=== PATIENT | female | born 1940 | race Caucasian/White ===

== ENCOUNTER 2020-08-20 10:54 | Inpatient (IN) | payer MEDICARE, SELFPAY ==
[2020-08-20] VITALS (9 sets, daily range): BP systolic 98–146; BP diastolic 47–72; PULSE 79–123; RESP 18–37; TEMP 36.5–38.1; O2SAT 87–98; BMI 25.0
--- NOTE | ~2020-08-20 | XR_ITS ---
EXAMINATION: XR CHEST CLINICAL INFORMATION: Hypoxia. COVID positive. COMPARISON: None TECHNIQUE: Frontal view of the chest was obtained. FINDINGS: Status post-sternotomy. Monitoring leads overlie the chest. Surgical clips in the mediastinum and right chest wall. Normal heart size. Normal pulmonary vascularity. There is peribronchial thickening. There are multifocal patchy airspace opacities in bilateral lower lungs. There are some hazy opacifications also noted in bilateral upper lungs. Possible trace bilateral pleural effusions. No pulmonary edema or pneumothorax. Left shoulder arthritis, with dysmorphic appearance and sclerosis of the left humeral head. XR/XR chest 1V IMPRESSION: Multifocal airspace disease in bilateral lungs, more prominent in the lower lungs. Associated peribronchial thickening. Findings likely reflect infectious or inflammatory process. Question trace bilateral pleural effusions.
--- NOTE | ~2020-08-20 | CT_ITS ---
EXAMINATION: CT ANGIOGRAM OF THE CHEST WITH AND WITHOUT CONTRAST (CT PULMONARY ANGIOGRAM FOR PE) CLINICAL INFORMATION: Hypoxic, tachycardic, COVID+, D-dimer elevated, concern for PE. COMPARISON: None TECHNIQUE: Prior to contrast administration, noncontrast localization images were obtained. Subsequently, multidetector volumetric imaging was performed from the thoracic inlet to below the diaphragms following the administration of 80 mL Omnipaque 350 intravenous contrast. Sagittal, coronal, and MIP oblique sagittal reformatted images were obtained on the CT workstation, uploaded to PACS, and reviewed. This CT examination was performed using dose optimization techniques as appropriate, variously including the following: *Automated exposure control *Adjustment of mA and/or kV according to patient size (this includes techniques or standardized protocols for targeted exams where dose is matched to indication/reason for exam; i.e. extremities or head) *Use of iterative reconstruction technique Total exam dose-length product 250 mGy-cm FINDINGS: QUALITY OF STUDY/CONTRAST BOLUS: Satisfactory. PULMONARY ARTERIES: There is apparent subtle filling defect in the right middle lobe pulmonary artery, reference image [id number] series 7. Findings raise concern for a small embolus. No other definite filling defects are identified in the central or segmental vessels. THORACIC AORTA: Normal caliber aorta. No dissection. LUNG: Multifocal airspace and ground-glass opacities in the left hemithorax. The more prominent changes are seen along the anterior aspect right upper lobe, bilateral lower lobes. Findings likely reflect infectious/inflammatory process, given the clinical history of COVID positive disease. PLEURA: No pleural effusion or pneumothorax. MEDIASTINUM: Normal heart size. No pericardial effusion. No hilar or mediastinal lymphadenopathy. No evidence of septal bowing or right heart strain. Moderate hiatal hernia. CHEST WALL/AXILLA: No axillary or internal mammary lymphadenopathy. OSSEOUS STRUCTURES: Multilevel degeneration in the spine. There is anterior wedging of a mid thoracic vertebral body, suspected to be chronic. Status post-sternotomy. UPPER ABDOMEN: Probable sludge in the gallbladder. Small hypodense right renal lesion, probable cyst. Adrenal glands appear unremarkable. No reflux of contrast into the hepatic veins to suggest elevated right heart pressures. CT/CT angio chest PE protocol IMPRESSION: 1. Findings suspicious for a small pulmonary embolus in the right middle lobe pulmonary artery. 2. Multifocal airspace and ground-glass opacities diffusely throughout bilateral lungs, likely reflect infectious or inflammatory process. Recommend followup CT posttreatment for reassessment. 3. Anterior wedging of a mid thoracic vertebral body, suspected be chronic. Please clinically correlate. 4. Probable sludge in the gallbladder. Partially imaged right renal hypodense lesion, probable cyst. VTE: Positive.
--- NOTE | ~2020-08-20 | US_ITS ---
EXAMINATION: US VENOUS ULTRASOUND WITH DOPPLER LOWER EXTREMITY, BILATERAL CLINICAL INFORMATION: Edema. History of Covid. COMPARISON: None TECHNIQUE: Ultrasound of the deep veins is performed from the hip to the calf with compression sonography and color and pulse Doppler assessment. Spectral analysis with color-flow imaging is performed. FINDINGS: RIGHT: There is partial thrombosis in the right common femoral vein, limitation of vascular flow. More distally, the femoral vein, popliteal vein, visualized calf veins are patent. There is a 4.1 x 1.6 x 4 cm De Leon's cyst. LEFT: There is normal venous compression and respiratory variation and augmented flow. The visualized common femoral vein, superficial femoral vein, profunda femoral vein, popliteal vein, and the trifurcation region shows no evidence of deep venous thrombosis. The visualized calf veins demonstrate normal vascular flow. De Leon's cyst measuring 1.7 x 1.2 x 1.2 cm. US/US venous duplex LE BI IMPRESSION: 1. STUDY POSITIVE for deep vein thrombosis in the RIGHT lower extremity. Partial thrombosis of the right common femoral vein. 2. No evidence of deep vein thrombosis in the left lower extremity. This critical result was discussed with Lidia Chase at 1549 hours on 08/20/2020 and it was ascertained that the content and urgency of the report was understood at the time of direct communication.
--- NOTE | 2020-08-20 11:10 | ECG_ITS ---
Test Reason : SOB Blood Pressure : / mmHG Vent. Rate : 112 BPM Atrial Rate : 112 BPM P-R Int : 166 ms QRS Dur : 142 ms QT Int : 374 ms P-R-T Axes : 069 -65 041 degrees QTc Int : 510 ms Sinus tachycardia with Premature atrial complexes Left axis deviation Right bundle branch block Left ventricular hypertrophy with repolarization abnormality Inferior infarct , age undetermined Abnormal ECG No previous ECGs available Referred By: Lidia Chase Electronically Signed By:STEVEN ARAMBULA MD
--- NOTE | 2020-08-20 11:13 | ED.SOB ---
HPI - SOB/Dyspnea General Chief Complaint: Dyspnea Stated Complaint: INCREASED SOB,FEVER 100.8, +COVID MONDAY Time Seen by Provider: 08/20/20 11:10 Source: patient and EMS Mode of arrival: EMS Limitations: no limitations History of Present Illness HPI Narrative: 80 y/o female with history of asthma, CAD s/p CABG x3 14 years ago, hx breast cancer s/p resection and chemo who was recently diagnosed with COVID-19 two days ago presents to the ED via EMS with difficulty breathing and hypoxia noted by family. She has a pulse oximeter at home and it read 80- something. Family took her temperature and it was 100.8 and they noticed her breathing heavy. EMS was called who found patient with SpO2 87%, RR 28-32. She was placed on 6L NC and thought to the ED. In the ED patient reports not feeling well with decreased appetite and low energy. RR in the 30's but she denies SOB or difficulty breathing. She denies chest pain. She was on 2L NC with SpO2 93%. She states her asthma is moderate and she hasn't needed to use her inhalers lately. She denies N/V/D and abdominal pain but has not eaten much this week. Of note her PCP was contacted on Monday who started her on Prednisone taper, azithromycin, & doxycycline. MD elicited complaint: shortness of breath Pertinent past history: asthma Onset (ago): day(s) (3) Context: recent illness Timing: constant Severity: moderate Exacerbating factors: exertion and movement Relieving factors: oxygen and rest Known history of: asthma Associated symptoms: fever Treatment prior to arrival: oxygen Related Data Home oxygen amount: none Home Medications Medication Instructions Recorded Confirmed albuterol sulfate 2.5 mg INHALATION Q4H PRN 08/20/20 08/20/20 azithromycin 250 mg PO MOWEFR@0900 08/20/20 08/20/20 beclomethasone dipropionate [Qvar 1 puff PO BID 08/20/20 RediHaler] doxycycline hyclate 100 mg PO BID 08/20/20 08/20/20 fluticasone propion-salmeterol 1 puff PO BID 08/20/20 08/20/20 [Wixela Inhub] furosemide 20 - 40 mg PO DAILY PRN 08/20/20 08/20/20 levothyroxine 88 mcg PO DAILY 08/20/20 08/20/20 montelukast 10 mg PO BEDTIME 08/20/20 08/20/20 prednisone See Taper PO DAILY 08/20/20 08/20/20 simvastatin 20 mg PO BEDTIME 08/20/20 08/20/20 theophylline 300 mg PO DAILY 08/20/20 08/20/20 tiotropium bromide [Spiriva 2 puff INHALATION DAILY 08/20/20 08/20/20 Respimat] Allergies Allergy/AdvReac Type Severity Reaction Status Date / Time levofloxacin [From Levaquin] Allergy Unknown Unknown Verified 08/20/20 13:00 Review of Systems Review of Systems: Constitutional: + Fever, No Chills ENT/Mouth: No sore throat, No Rhinorrhea, No Swallowing Difficulty Cardiovascular: No Chest Pain, + SOB, No Orthopnea, No Edema Respiratory: No Cough, No Sputum, No Wheezing, No dyspnea Gastrointestinal: No Nausea, No Vomiting, No Diarrhea, No abdominal Pain Genitourinary: No Dysuria, No Urinary Frequency, No Hematuria Musculoskeletal: No joint pain, + Myalgias Skin: No Skin Lesions, No rash Neuro: + Weakness, No Numbness, No Dizziness, + Headache Psych: No Anxiety/Panic, No Depression Heme/Lymph: No Bruising, No Lymphadenopathy Endocrine: No Polyuria, No Polydipsia PMFSH Past Medical History Attestation statement: The following information was validated with the patient. Medical History Asthma History of breast cancer History of chemotherapy Surgical History (Updated 08/20/20 @ 11:11 by Shani Bautista RN) S/P triple vessel bypass Social History Social History Alcohol intake: never Smoking Status: Never smoker Advance Directives: No Advance Directives Information Provided: No Physical Exam Vital Signs: Vital Signs: Last Vital Signs Temp 97.7 F 08/20/20 13:29 Pulse 115 H 08/20/20 14:25 Resp 34 H 08/20/20 14:25 BP 104/50 L 08/20/20 14:25 Pulse Ox 97 08/20/20 14:25 Body Mass Index 25.0 Appearance: Alert. Oriented X3. Mild respiratory distress. Eyes: Pupils equal, round and reactive to light. Sucken eyes with mild temporal wasting ENT: Pharynx nwith dry mucus membranes Neck: Normal inspection. Neck supple. CVS: Tachycardic, regular rhythm. Pulses normal. Respiratory: Mild-moderate respiratory distress with RR 30, no accessory muscle use, diminished throughout with rhonchi in right middle lung field posteriorly. Abdomen: Soft and nontender. +BS x4 Skin: Skin warm and dry. Normal skin color. Normal skin turgor. No rashes. Extremities: RLE with 2+ pitting edema, 2+ DP pulses. Neuro: Oriented X 3. No motor deficit. No sensory deficit. SOLOMON Course Course Course Narrative: 80 y/o female with recently diagnosed COVID-19 presenting with acute hypoxic respiratory failure, low grade fever and tachycardia - IV decadron ordered as well as hour long nebulizer treatment. ABG and lab workup pending. No immediate need for rescue CPAP/BiPAP - will reassess need after nebulizer. CXR and LE ultrasound ordered. Suspect all due to viral etiology/COVID. Will require admission. Reevaluation(s) Reevaluation #1: Respiratory status improved after neb and IV steroids, RR now in the 20's, saturating well on 2L NC. ABG showing acute respiratory alkalosis consistent with her hyperventilation however she denies significant SOB. She appears comfortable. DDIMER is elevated, will proceed with CTA to r/o PE and further assess lung parenchyma. CXR is showing multifocal airspace disease with possible small effusions. BNP is normal. WBC 19.8 noted, likely due to the prednisone & viral etiology. Awaiting procalcitonin. Will hold off on antibiotics at this time. Spoke with patient's daughter Neelima, provided medical update and informed her of planned admission. Reevaluation #2: CTA + for small RML PE. LE dopplers + RLE DVT. Heparin gtt ordered. ODILON Neely PA-C who will admit the patient for further care. MDM - SOB/Dyspnea Medical Records Attestation: I reviewed the patient's medical records. Lab Data Attestation: I reviewed the patient's lab results. Result diagrams: 08/20/20 11:39 08/20/20 12:24 Labs: Lab Results 08/20/20 08/20/20 08/20/20 Range/Units 11:25 11:35 11:39 WBC 19.3 H (4.8-10.8) X10*3/uL RBC 5.09 (4.20-5.50) X10*6/uL Hgb 12.5 (12.0-16.0) g/dl Hct 40.5 (37-47) % MCV 79.6 L (80-98) fL MCH 24.6 L (27.0-33.0) pg MCHC 30.9 L (31.0-35.0) g/dl RDW 16.2 H (11.0-16.0) % Plt Count 417 H (160-400) X10*3/uL MPV 8.9 L (9.4-12.3) fL Immature Gran % (Auto) 0.8 H (0.0-0.4) % Neut % (Auto) 93.1 H (45-73) % Lymph % (Auto) 2.4 L (20-40) % [place] % (Auto) 3.6 (2-11) % Eos % (Auto) 0.0 (0-4) % Baso % (Auto) 0.1 (0-2) % Lymph # (Auto) 0.5 L (1.2-4.9) X10*3/uL [place] # (Auto) 0.7 (0.1-1.2) X10*3/uL Eos # (Auto) 0.0 (0.0-0.4) X10*3/uL Baso # (Auto) 0.0 (0.0-0.2) X10*3/uL Abs Immat Gran (auto) 0.15 H (0.00-0.03) X10*3/uL Absolute Neuts (auto) 17.9 H (2.0-8.3) X10*3/uL Absolute Nucleated RBC 0.000 (0.0-0.012) X10*3/uL Nucleated RBC % (auto) 0.0 (0.0-0.2) /100WBC Smear Tech's Comments VERIFIED PT (10.8-13.0) SEC INR (0.9-1.1) APTT (24.1-38.0) SEC D-Dimer NG/ML ABG pH 7.52 H (7.35-7.45) ABG pCO2 29 L (32-45) mmHg ABG pO2 72 L (83-108) mmHg ABG HCO3 24 (22-26) mmol/L ABG O2 Saturation 92.0 % ABG Base Excess 2.7 Oxygen Given 2 L Sodium (135-145) mmol/L Potassium (3.3-5.1) mmol/L Chloride (96-108) mmol/L Carbon Dioxide (22-29) mmol/L Anion Gap (12-20) BUN (9-16) mg/dL Creatinine (0.5-1.4) mg/dL Estim Creat Clear Calc Estimated GFR Random Glucose (60-115) mg/dL Lactic Acid (0.5-2.0) mmol/L Calcium (8.4-10.2) mg/dL Magnesium (1.6-2.6) mg/dL Total Bilirubin (0.0-1.0) mg/dL Direct Bilirubin (0.0-0.5) mg/dL AST (5-31) U/L ALT (0-31) U/L Alkaline Phosphatase (39-117) U/L Troponin I High Sens (<3.5-17.0) ng/L C-Reactive Protein (< or = 0.50) mg/dL B-Natriuretic Peptide (<100) pg/mL Total Protein (6.5-8.0) g/dL Albumin (3.5-5.0) g/dL Procalcitonin ng/mL Urine Color Urine Appearance Urine pH (5.0-8.0) Ur Specific [place] (1.005-1.025) Urine Protein (NEG-TRACE) MG/DL Urine Glucose (UA) (NEG) MG/DL Urine Ketones (NEG) MG/DL Urine Blood (NEG) Urine Nitrite (NEG) Ur Leukocyte Esterase (NEG) Urine RBC (0) /HPF Urine WBC (0-4) /HPF Ur Squamous Epith Cells /LPF Urine Bacteria /LPF COVID-19 ([facility]) Positive A (Negative) COVID-19 Clin Com See Note 08/20/20 08/20/20 08/20/20 Range/Units 11:39 11:39 11:39 WBC (4.8-10.8) X10*3/uL RBC (4.20-5.50) X10*6/uL Hgb (12.0-16.0) g/dl Hct (37-47) % MCV (80-98) fL MCH (27.0-33.0) pg MCHC (31.0-35.0) g/dl RDW (11.0-16.0) % Plt Count (160-400) X10*3/uL MPV (9.4-12.3) fL Immature Gran % (Auto) (0.0-0.4) % Neut % (Auto) (45-73) % Lymph % (Auto) (20-40) % [place] % (Auto) (2-11) % Eos % (Auto) (0-4) % Baso % (Auto) (0-2) % Lymph # (Auto) (1.2-4.9) X10*3/uL [place] # (Auto) (0.1-1.2) X10*3/uL Eos # (Auto) (0.0-0.4) X10*3/uL Baso # (Auto) (0.0-0.2) X10*3/uL Abs Immat Gran (auto) (0.00-0.03) X10*3/uL Absolute Neuts (auto) (2.0-8.3) X10*3/uL Absolute Nucleated RBC (0.0-0.012) X10*3/uL Nucleated RBC % (auto) (0.0-0.2) /100WBC Smear Tech's Comments PT 15.2 H (10.8-13.0) SEC INR 1.3 H (0.9-1.1) APTT 29.5 (24.1-38.0) SEC D-Dimer 379 NG/ML ABG pH (7.35-7.45) ABG pCO2 (32-45) mmHg ABG pO2 (83-108) mmHg ABG HCO3 (22-26) mmol/L ABG O2 Saturation % ABG Base Excess Oxygen Given Sodium (135-145) mmol/L Potassium (3.3-5.1) mmol/L Chloride (96-108) mmol/L Carbon Dioxide (22-29) mmol/L Anion Gap (12-20) BUN (9-16) mg/dL Creatinine (0.5-1.4) mg/dL Estim Creat Clear Calc Estimated GFR Random Glucose (60-115) mg/dL Lactic Acid 1.8 (0.5-2.0) mmol/L Calcium (8.4-10.2) mg/dL Magnesium (1.6-2.6) mg/dL Total Bilirubin (0.0-1.0) mg/dL Direct Bilirubin (0.0-0.5) mg/dL AST (5-31) U/L ALT (0-31) U/L Alkaline Phosphatase (39-117) U/L Troponin I High Sens 25.3 H (<3.5-17.0) ng/L C-Reactive Protein (< or = 0.50) mg/dL B-Natriuretic Peptide 30 (<100) pg/mL Total Protein (6.5-8.0) g/dL Albumin (3.5-5.0) g/dL Procalcitonin ng/mL Urine Color Urine Appearance Urine pH (5.0-8.0) Ur Specific [place] (1.005-1.025) Urine Protein (NEG-TRACE) MG/DL Urine Glucose (UA) (NEG) MG/DL Urine Ketones (NEG) MG/DL Urine Blood (NEG) Urine Nitrite (NEG) Ur Leukocyte Esterase (NEG) Urine RBC (0) /HPF Urine WBC (0-4) /HPF Ur Squamous Epith Cells /LPF Urine Bacteria /LPF COVID-19 ([facility]) (Negative) COVID-19 Clin Com 08/20/20 08/20/20 08/20/20 Range/Units 12:24 12:24 13:32 WBC (4.8-10.8) X10*3/uL RBC (4.20-5.50) X10*6/uL Hgb (12.0-16.0) g/dl Hct (37-47) % MCV (80-98) fL MCH (27.0-33.0) pg MCHC (31.0-35.0) g/dl RDW (11.0-16.0) % Plt Count (160-400) X10*3/uL MPV (9.4-12.3) fL Immature Gran % (Auto) (0.0-0.4) % Neut % (Auto) (45-73) % Lymph % (Auto) (20-40) % [place] % (Auto) (2-11) % Eos % (Auto) (0-4) % Baso % (Auto) (0-2) % Lymph # (Auto) (1.2-4.9) X10*3/uL [place] # (Auto) (0.1-1.2) X10*3/uL Eos # (Auto) (0.0-0.4) X10*3/uL Baso # (Auto) (0.0-0.2) X10*3/uL Abs Immat Gran (auto) (0.00-0.03) X10*3/uL Absolute Neuts (auto) (2.0-8.3) X10*3/uL Absolute Nucleated RBC (0.0-0.012) X10*3/uL Nucleated RBC % (auto) (0.0-0.2) /100WBC Smear Tech's Comments PT (10.8-13.0) SEC INR (0.9-1.1) APTT (24.1-38.0) SEC D-Dimer NG/ML ABG pH (7.35-7.45) ABG pCO2 (32-45) mmHg ABG pO2 (83-108) mmHg ABG HCO3 (22-26) mmol/L ABG O2 Saturation % ABG Base Excess Oxygen Given Sodium 138 (135-145) mmol/L Potassium 2.9 L (3.3-5.1) mmol/L Chloride 98 (96-108) mmol/L Carbon Dioxide 24 (22-29) mmol/L Anion Gap 19 (12-20) BUN 22 H (9-16) mg/dL Creatinine 0.82 (0.5-1.4) mg/dL Estim Creat Clear Calc 45.1 Estimated GFR > 60 Random Glucose 145 H (60-115) mg/dL Lactic Acid (0.5-2.0) mmol/L Calcium 8.7 (8.4-10.2) mg/dL Magnesium 1.5 L (1.6-2.6) mg/dL Total Bilirubin 0.7 (0.0-1.0) mg/dL Direct Bilirubin 0.3 (0.0-0.5) mg/dL AST 32 H (5-31) U/L ALT 19 (0-31) U/L Alkaline Phosphatase 117 (39-117) U/L Troponin I High Sens (<3.5-17.0) ng/L C-Reactive Protein 27.61 H (< or = 0.50) mg/dL B-Natriuretic Peptide (<100) pg/mL Total Protein 6.4 L (6.5-8.0) g/dL Albumin 3.5 (3.5-5.0) g/dL Procalcitonin 1.33 ng/mL Urine Color YELLOW Urine Appearance CLEAR Urine pH 6.0 (5.0-8.0) Ur Specific [place] 1.015 (1.005-1.025) Urine Protein 1+ H (NEG-TRACE) MG/DL Urine Glucose (UA) NEG (NEG) MG/DL Urine Ketones NEG (NEG) MG/DL Urine Blood TRACE (NEG) Urine Nitrite NEG (NEG) Ur Leukocyte Esterase NEG (NEG) Urine RBC 0-2 (0) /HPF Urine WBC 0-2 (0-4) /HPF Ur Squamous Epith Cells 1+ /LPF Urine Bacteria TRACE /LPF COVID-19 ([facility]) (Negative) COVID-19 Clin Com ECG Data Attestation: I personally reviewed and interpreted this ECG as follows: ECG interpretation date: 08/20/20 Prior ECG tracings: not available for review Interpretation: sinus tachycardia, HR 112 bpm, RBBB, normal MI interval, prolonged Qtc 510 ms, artifact present Critical Care Time Critical Care Time Critical Care Time: Yes Total Critical Care Time: 45 Attestation: I attest to critical care time spent caring for this patient with acute hypoxic respiratory failure requiring supplemental oxygen with close and frequent monitoring of respiratory status. Discharge Plan Discharge Clinical Impression: Acute respiratory failure due to COVID-19 Pulmonary embolism Qualifiers: Pulmonary embolism type: single subsegmental (without acute cor pulmonale) Qualified Code(s): I26.93 - Single subsegmental pulmonary embolism without acute cor pulmonale DVT (deep venous thrombosis) Qualifiers: DVT location: lower extremity Affected thrombotic vein of extremity: femoral Chronicity: acute Laterality: right Qualified Code(s): I82.411 - Acute embolism and thrombosis of right femoral vein Patient Disposition: Admitted As Inpatient
[2020-08-20] MEDS: Albuterol Sulfate (0.083%) 2.5 MG/3 ML VIAL.NEB 10 MG INHALE (11:44)
[2020-08-20 11:48] LABS: Pt Ventilation O2% 2 L
[2020-08-20 11:50] LABS: Base Excess ABG 2.7; HCO3 ABG 24 mmol/L (22-26)
[2020-08-20 11:51] LABS: Basophils Percent Auto 0.1 % (0-2); Hematocrit 40.5 % (37-47); Hemoglobin 12.5 g/dl (12.0-16.0); Imm Gran Abs Auto 0.15 X10*3/uL (0.00-0.03); Imm Gran Pct Auto 0.8 % (0.0-0.4); Lymphocytes Absolute Auto 0.5 X10*3/uL (1.2-4.9); Lymphocytes Percent Auto 2.4 % (20-40); MANUAL DIFF FLAG SCAN; Mean Corpuscular HGB Conc 30.9 g/dl (31.0-35.0); Mean Corpuscular Hemoglobin 24.6 pg (27.0-33.0); Mean Corpuscular Volume 79.6 fL (80-98); Mean Platelet Volume 8.9 fL (9.4-12.3); Monocytes Absolute Auto 0.7 X10*3/uL (0.1-1.2); Monocytes Percent Auto 3.6 % (2-11); Neutrophils Absolute Auto 17.9 X10*3/uL (2.0-8.3); Neutrophils Percent Auto 93.1 % (45-73); Platelet Count 417 X10*3/uL (160-400); Red Blood Count 5.09 X10*6/uL (4.20-5.50); Red Cell Distribution Width 16.2 % (11.0-16.0); SCAN SMEAR FLAG 1; White Blood Count 19.3 X10*3/uL (4.8-10.8)
[2020-08-20 11:51] LABS: ABG PCO2 29 mmHg (32-45); PO2 ABG 72 mmHg (83-108); pH ABG 7.52 (7.35-7.45)
[2020-08-20] MEDS: dexAMETHasone sod phosphate 4 MG/ML VIAL 6 MG IVPUSH (11:51)
[2020-08-20] MEDS: 0.9 % Sodium Chloride 1,000 ML 999 ML IVCONT (11:51)
[2020-08-20] MEDS: Acetaminophen 325 MG TABLET 975 MG PO (11:54)
[2020-08-20 11:56] LABS: INTERNATIONAL NORM RATIO 1.3 (0.9-1.1); Prothrombin Time 15.2 SEC (10.8-13.0)
[2020-08-20 11:59] LABS: D Dimer 379 NG/ML; Partial Thromboplastin Time 29.5 SEC (24.1-38.0)
[2020-08-20 12:00] LABS: COVID-19 Test Positive (Negative); IDNOW Serial# 9DD0AD1C
[2020-08-20 12:14] LABS: Lactic Acid 1.8 mmol/L (0.5-2.0)
[2020-08-20 12:24] LABS: SLIDE REVIEW VERIFIED
[2020-08-20 12:26] LABS: B Type Natriuretic Peptide 30 pg/mL (<100); Troponin-I High Sensitivity 25.3 ng/L (<3.5-17.0)
[2020-08-20 13:05] LABS: Alanine Aminotransferase 19 U/L (0-31); Albumin Level 3.5 g/dL (3.5-5.0); Alkaline Phosphatase 117 U/L (39-117); Aspartate Amino Transferase 32 U/L (5-31); Bilirubin Direct 0.3 mg/dL (0.0-0.5); Bilirubin Total 0.7 mg/dL (0.0-1.0); Blood Urea Nitrogen 22 mg/dL (9-16); C Reactive Protein 27.61 mg/dL (< or = 0.50); Calcium 8.7 mg/dL (8.4-10.2); Creatinine Clr Calc Pharmacy 45.1; Estimated Glomerular Filt Rate > 60; Glucose Random 145 mg/dL (60-115); Magnesium 1.5 mg/dL (1.6-2.6); Total Protein 6.4 g/dL (6.5-8.0)
[2020-08-20 13:16] LABS: Anion Gap 19 (12-20); Carbon Dioxide 24 mmol/L (22-29); Chloride 98 mmol/L (96-108); Potassium 2.9 mmol/L (3.3-5.1); Sodium 138 mmol/L (135-145)
[2020-08-20 13:40] LABS: Glucose Urine UA NEG (NEG); Leukocyte Esterase Urine NEG (NEG); Nitrite Urine NEG (NEG); Specific Gravity - Urine 1.015 (1.005-1.025); Urine Blood TRACE (NEG); Urine Ketones NEG (NEG); Urine Protein 1+ MG/DL (NEG-TRACE)
[2020-08-20 13:42] LABS: Appearance Urine CLEAR; Color Urine YELLOW
[2020-08-20 13:50] LABS: Bacteria Urine TRACE /LPF; RBC Urine 0-2 /HPF (0); Squamous Epithelial Cell Urine 1+ /LPF; WBC Urine 0-2 /HPF (0-4)
[2020-08-20] MEDS: iohexoL 350 MG/ML 100 ML INFUS..BTL 85 ML IV (14:14)
[2020-08-20] MEDS: Magnesium Sulfate/H2O 2 GM/50 ML PIGGYBACK IV (14:28)
[2020-08-20] MEDS: Potassium Chloride ER 20 MEQ TAB.ER.PRT 60 MEQ PO (14:32)
[2020-08-20] MEDS: Heparin Sodium,Porcine 5,000 UNIT/ML VIAL 2300 UNIT IVPUSH (15:32)
[2020-08-20] MEDS: Heparin Sodium,Porcine/1/2NS 25,000 UNIT/250 ML IV.SOLN 8.12 UNIT IVCONT (15:42)
[2020-08-20 15:46] LABS: Procalcitonin 1.33 ng/mL
[2020-08-20 15:58] LABS: Troponin-I High Sensitivity 38.2 ng/L (<3.5-17.0)
--- NOTE | 2020-08-20 16:03 | P.HPHOSP_ITS ---
History of Present Illness Date of Service: 08/20/20 <DONNELL Cuevas Last Filed: 08/20/20 16:39> Chief Complaint: shortness of breath <DONNELL Cuevas Last Filed: 08/20/20 16:39> This is a 80 year old female who presents to the ED with shortness of breath. She has had a dry cough for the past 1 week and has been generally feeling ?lousy.? She was diagnosed with coronavirus on Monday. She lives with her daughter and recently her son-in-law tested positive for COVID19. She and the remainder of her family all tested positive as well. Today her oxygen saturation at home was low and she was reportedly short of breath she was brought to the hospital for evaluation. She was noted to have fever of 100.5, she was tachycardic and tachypneic on arrival. Her oxygen saturation was in the 80s by EMS. CTA showed multifocal airspace and ground-glass opacities diffusely throughout bilateral lungs as well as small pulmonary embolus in the right middle lobe pulmonary artery and right lower extremity DVT. Her CRP was elevated at 27.61. She was given a dose of IV dexamethasone and started on heparin drip and the decision was made to admit her for further management. <DONNELL Cuevas - Last Filed: 08/20/20 16:39> Review of Systems Review of Systems: Yes all other systems are reviewed and are negative <DONNELL Cuevas Last Filed: 08/20/20 16:39> Constitutional: Constitutional: Denies chills and Reports fever(s) <DONNELL Cuevas Last Filed: 08/20/20 16:39> Cardiovascular: Cardiovascular: Denies chest pain and Denies dyspnea <DONNELL Cuevas Last Filed: 08/20/20 16:39> Respiratory: Respiratory: Reports cough and Denies dyspnea <DONNELL Cuevas Last Filed: 08/20/20 16:39> Gastrointestinal: Gastrointestinal: Denies abdominal pain <DONNELL Cuevas Last Filed: 08/20/20 16:39> [facility] Medical History: Medical History (Updated 08/20/20 @ 16:10 by DONNELL Cuevas) Asthma CAD (coronary artery disease) History of breast cancer History of chemotherapy HLD (hyperlipidemia) Hypothyroid <DONNELL Cuevas - Last Filed: 08/20/20 16:39> Functional capacity: uses cane/walker <DONNELL Cuevas - Last Filed: 08/20/20 16:39> Family History: Family History Other No cardiac disease <DONNELL Cuevas - Last Filed: 08/20/20 16:39> Family history: reviewed and not pertinent <DONNELL Cuevas - Last Filed: 08/20/20 16:39> Surgical History: Surgical History S/P triple vessel bypass <DONNELL Cuevas - Last Filed: 08/20/20 16:39> Social History: Social History (Updated 08/20/20 @ 16:11 by DONNELL Cuevas) Household Members: Family Housing: House Do you presently have visiting nurse or other home services: No Alcohol intake: never Smoking Status: Never smoker Smoked in Last 30 Days: No Use of substances other than those prescribed or required for medical reasons: No Have you been hit, kicked, punched, or otherwise hurt by someone within the past year? If so, by whom?: No Do you feel safe in your current relationship?: No Current Relationship Is there a partner from a previous relationship who is making you feel unsafe now?: No Are you made to feel afraid or neglected: No Advance Directives: No Advance Directives Information Provided: No Do you have thoughts of harming others: None Recently lost weight without trying: No service: No Current occupational status: retired <DONNELL Cuevas - Last Filed: 08/20/20 16:39> Meds Allergies/Adverse reactions: Allergies Allergy/AdvReac Type Severity Reaction Status Date / Time levofloxacin [From Levaquin] Allergy Unknown Unknown Verified 08/20/20 13:00 <DONNELL Cuevas - Last Filed: 08/20/20 16:39> Active Medications: Current Medications Generic Name Dose Route Start Last Admin Trade Name Freq PRN Reason Stop Dose Admin Heparin Sodium (Porcine) 2,300 unit 08/20/20 14:44 08/20/20 15:32 Heparin Sodium,Porcine 5,000 Unit/Ml Vial 40 unit/kg (2300 unit) 2,300 unit IVPUSH Administration BOLUS PRN 40 unit/kg - Heparin Protocol Heparin Sodium/Sodium Chloride 25,000 unit in 250 mls @ 0 mls/hr 08/20/20 14:45 08/20/20 15:42 IVCONT 14 units/kg/hr .Q0M GERALD 8.12 mls/hr Administration Protocol Per Protocol Pharmacy Consult 1 each 08/20/20 11:10 Consult Rx Perform Med Rec MISCELLANE ONCE PRN Consult order <DONNELL Cuevas - Last Filed: 08/20/20 16:39> Home medications: Home Medications Medication Instructions Recorded Confirmed Last Taken Type albuterol sulfate 2.5 mg INHALATION Q4H PRN 08/20/20 08/20/20 08/20/20 History azithromycin 250 mg PO MOWEFR@0900 08/20/20 08/20/20 08/19/20 History beclomethasone dipropionate [Qvar 1 puff PO BID 08/20/20 Unknown History RediHaler] doxycycline hyclate 100 mg PO BID 08/20/20 08/20/20 08/19/20 History fluticasone propion-salmeterol 1 puff PO BID 08/20/20 08/20/20 Unknown History [Wixela Inhub] furosemide 20 - 40 mg PO DAILY PRN 08/20/20 08/20/20 Unknown History levothyroxine 88 mcg PO DAILY 08/20/20 08/20/20 08/20/20 History montelukast 10 mg PO BEDTIME 08/20/20 08/20/20 08/19/20 History prednisone See Taper PO DAILY 08/20/20 08/20/20 08/20/20 History simvastatin 20 mg PO BEDTIME 08/20/20 08/20/20 08/19/20 History theophylline 300 mg PO DAILY 08/20/20 08/20/20 08/19/20 History tiotropium bromide [Spiriva 2 puff INHALATION DAILY 08/20/20 08/20/20 Unknown History Respimat] <DONNELL Cuevas - Last Filed: 08/20/20 16:39> Physical Exam Vital Signs and Narrative: Vital Signs: Last Vital Signs Temp 97.7 F 08/20/20 13:29 Pulse 115 H 08/20/20 14:25 Resp 34 H 08/20/20 14:25 BP 104/50 L 08/20/20 14:25 Pulse Ox 97 08/20/20 14:25 Body Mass Index 25.0 <DONNELL Cuevas - Last Filed: 08/20/20 16:39> Const: Other: hard of hearing, able to hear better on right side <DONNELL Cuevas - Last Filed: 08/20/20 16:39> General: cooperative, alert and awake <DONNELL Cuevas - Last Filed: 08/20/20 16:39> Nutritional Appearance: well nourished <DONNELL Cuevas - Last Filed: 08/20/20 16:39> Orientation/consciousness: patient oriented x3 <DONNELL Cuevas - Last Filed: 08/20/20 16:39> HENMT: Head: Yes normocephalic and Yes atraumatic <DONNELL Cuevas - Last Filed: 08/20/20 16:39> Eyes: Sclerae: sclerae normal <DONNELL Cuevas - Last Filed: 08/20/20 16:39> Chest: Chest palpation & inspection: normal inspection of the chest <DONNELL Cuevas - Last Filed: 08/20/20 16:39> Resp: Effort & Inspection: tachypneic <DONNELL Cuevas - Last Filed: 08/20/20 16:39> Cardio: Rate: regular rate <DONNELL Cuevas - Last Filed: 08/20/20 16:39> Rhythm: regular rhythm <DONNELL Cuevas - Last Filed: 08/20/20 16:39> GI: Palpation (GI): Soft to palpation and nontender <DONNELL Cuevas - Last Filed: 08/20/20 16:39> Skin: General skin exam: no rashes or lesions noted <DONNELL Cuevas - Last Filed: 08/20/20 16:39> Neuro: General: patient oriented x3 <DONNELL Cuevas - Last Filed: 08/20/20 16:39> Cranial nerves: Yes CN's II-XII intact bilaterally and Yes Bilaterally intact EOM present <DONNELL Cuevas - Last Filed: 08/20/20 16:39> Extrem: Other: RLE swelling <DONNELL Cuevas - Last Filed: 08/20/20 16:39> Results Labs CBC and Chem 7: : 08/21/20 07:53 08/21/20 07:53 <DONNELL Cuevas - Last Filed: 08/20/20 16:39> Labs: Laboratory Results - last 24 hr 08/20/20 08/20/20 08/20/20 11:25 11:35 11:39 MCV 79.6 L MCH 24.6 L MCHC 30.9 L RDW 16.2 H Plt Count 417 H MPV 8.9 L Immature Gran % (Auto) 0.8 H Neut % (Auto) 93.1 H Lymph % (Auto) 2.4 L [place] % (Auto) 3.6 Eos % (Auto) 0.0 Baso % (Auto) 0.1 Lymph # (Auto) 0.5 L [place] # (Auto) 0.7 Eos # (Auto) 0.0 Baso # (Auto) 0.0 Abs Immat Gran (auto) 0.15 H Absolute Neuts (auto) 17.9 H Absolute Nucleated RBC 0.000 Nucleated RBC % (auto) 0.0 Smear Tech's Comments VERIFIED PT INR APTT D-Dimer ABG pH 7.52 H ABG pCO2 29 L ABG pO2 72 L ABG HCO3 24 ABG O2 Saturation 92.0 ABG Base Excess 2.7 Oxygen Given 2 L Anion Gap Estim Creat Clear Calc Estimated GFR Random Glucose Lactic Acid Calcium Magnesium Total Bilirubin Direct Bilirubin AST ALT Alkaline Phosphatase Troponin I High Sens C-Reactive Protein B-Natriuretic Peptide Total Protein Albumin Procalcitonin Urine Color Urine Appearance Urine pH Ur Specific [place] Urine Protein Urine Glucose (UA) Urine Ketones Urine Blood Urine Nitrite Ur Leukocyte Esterase Urine RBC Urine WBC Ur Squamous Epith Cells Urine Bacteria COVID-19 (MIRNA) Positive A COVID-19 Clin Com See Note 08/20/20 08/20/20 08/20/20 11:39 11:39 11:39 MCV MCH MCHC RDW Plt Count MPV Immature Gran % (Auto) Neut % (Auto) Lymph % (Auto) [place] % (Auto) Eos % (Auto) Baso % (Auto) Lymph # (Auto) [place] # (Auto) Eos # (Auto) Baso # (Auto) Abs Immat Gran (auto) Absolute Neuts (auto) Absolute Nucleated RBC Nucleated RBC % (auto) Smear Tech's Comments PT 15.2 H INR 1.3 H APTT 29.5 D-Dimer 379 ABG pH ABG pCO2 ABG pO2 ABG HCO3 ABG O2 Saturation ABG Base Excess Oxygen Given Anion Gap Estim Creat Clear Calc Estimated GFR Random Glucose Lactic Acid 1.8 Calcium Magnesium Total Bilirubin Direct Bilirubin AST ALT Alkaline Phosphatase Troponin I High Sens 25.3 H C-Reactive Protein B-Natriuretic Peptide 30 Total Protein Albumin Procalcitonin Urine Color Urine Appearance Urine pH Ur Specific [place] Urine Protein Urine Glucose (UA) Urine Ketones Urine Blood Urine Nitrite Ur Leukocyte Esterase Urine RBC Urine WBC Ur Squamous Epith Cells Urine Bacteria COVID-19 (MIRNA) COVID-19 Clin Com 08/20/20 08/20/20 08/20/20 12:24 12:24 13:32 MCV MCH MCHC RDW Plt Count MPV Immature Gran % (Auto) Neut % (Auto) Lymph % (Auto) [place] % (Auto) Eos % (Auto) Baso % (Auto) Lymph # (Auto) [place] # (Auto) Eos # (Auto) Baso # (Auto) Abs Immat Gran (auto) Absolute Neuts (auto) Absolute Nucleated RBC Nucleated RBC % (auto) Smear Tech's Comments PT INR APTT D-Dimer ABG pH ABG pCO2 ABG pO2 ABG HCO3 ABG O2 Saturation ABG Base Excess Oxygen Given Anion Gap 19 Estim Creat Clear Calc 45.1 Estimated GFR > 60 Random Glucose 145 H Lactic Acid Calcium 8.7 Magnesium 1.5 L Total Bilirubin 0.7 Direct Bilirubin 0.3 AST 32 H ALT 19 Alkaline Phosphatase 117 Troponin I High Sens C-Reactive Protein 27.61 H B-Natriuretic Peptide Total Protein 6.4 L Albumin 3.5 Procalcitonin 1.33 Urine Color YELLOW Urine Appearance CLEAR Urine pH 6.0 Ur Specific [place] 1.015 Urine Protein 1+ H Urine Glucose (UA) NEG Urine Ketones NEG Urine Blood TRACE Urine Nitrite NEG Ur Leukocyte Esterase NEG Urine RBC 0-2 Urine WBC 0-2 Ur Squamous Epith Cells 1+ Urine Bacteria TRACE COVID-19 (MIRNA) COVID-19 Clin Com 08/20/20 15:09 MCV MCH MCHC RDW Plt Count MPV Immature Gran % (Auto) Neut % (Auto) Lymph % (Auto) [place] % (Auto) Eos % (Auto) Baso % (Auto) Lymph # (Auto) [place] # (Auto) Eos # (Auto) Baso # (Auto) Abs Immat Gran (auto) Absolute Neuts (auto) Absolute Nucleated RBC Nucleated RBC % (auto) Smear Tech's Comments PT INR APTT D-Dimer ABG pH ABG pCO2 ABG pO2 ABG HCO3 ABG O2 Saturation ABG Base Excess Oxygen Given Anion Gap Estim Creat Clear Calc Estimated GFR Random Glucose Lactic Acid Calcium Magnesium Total Bilirubin Direct Bilirubin AST ALT Alkaline Phosphatase Troponin I High Sens 38.2 H D C-Reactive Protein B-Natriuretic Peptide Total Protein Albumin Procalcitonin Urine Color Urine Appearance Urine pH Ur Specific [place] Urine Protein Urine Glucose (UA) Urine Ketones Urine Blood Urine Nitrite Ur Leukocyte Esterase Urine RBC Urine WBC Ur Squamous Epith Cells Urine Bacteria COVID-19 (MIRNA) COVID-19 Clin Com <DONNELL Cuevas - Last Filed: 08/20/20 16:39> Imaging Radiologist's Impressions: Impressions Chest X-Ray 08/20/20 11:10 IMPRESSION: Multifocal airspace disease in bilateral lungs, more prominent in the lower lungs. Associated peribronchial thickening. Findings likely reflect infectious or inflammatory process. Question trace bilateral pleural effusions. Chest CTA 08/20/20 12:28 IMPRESSION: 1. Findings suspicious for a small pulmonary embolus in the right middle lobe pulmonary artery. 2. Multifocal airspace and ground-glass opacities diffusely throughout bilateral lungs, likely reflect infectious or inflammatory process. Recommend followup CT posttreatment for reassessment. 3. Anterior wedging of a mid thoracic vertebral body, suspected be chronic. Please clinically correlate. 4. Probable sludge in the gallbladder. Partially imaged right renal hypodense lesion, probable cyst. VTE: Positive. <DONNELL Cuevas - Last Filed: 08/20/20 16:39> Assessment and Plan (1) Acute respiratory failure due to COVID-19: Status: Acute <DONNELL Cuevas - Last Filed: 08/20/20 16:39> (2) Pulmonary embolism: Qualifiers: Pulmonary embolism type: single subsegmental (without acute cor pulmonale) Qualified Code(s): I26.93 - Single subsegmental pulmonary embolism without acute cor pulmonale <DONNELL Cuevas - Last Filed: 08/20/20 16:39> Status: Acute <DONNELL Cuevas - Last Filed: 08/20/20 16:39> (3) DVT (deep venous thrombosis): Qualifiers: Affected thrombotic vein of extremity: femoral Chronicity: acute DVT location: lower extremity Laterality: right Qualified Code(s): I82.411 - Acute embolism and thrombosis of right femoral vein <DONNELL Mcnally - Last Filed: 08/20/20 16:39> Status: Acute <DONNELL Cuevas - Last Filed: 08/20/20 16:39> This is a 80-year-old male with a history of hyperlipidemia CAD, hypothyroid, asthma, recent diagnosis of COVID-19 who presents to the emergency department with shortness of breath found to be hypoxic and with PE Acute respiratory failure with hypoxia multifactorial due to underlying lung dz, covid, PE Viral Sepsis secondary to covid 19 sepsis focused exam completed. LA wnl. Pneumonia secondary to COVID-19. -given elevated procalcitonin will cover with antibiotics. 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 Palacios <DONNELL Cuevas - Last Filed: 08/20/20 16:39>
--- NOTE | 2020-08-20 16:16 | PM.EVENT ---
Event Note Date of Service: 08/20/20 Event Note: Patient seen examined with APC 80-year-old female patient with past medical history significant for asthma, coronary artery disease, breast cancer status post chemo presented to [place] with symptoms of shortness of breath, dry cough and hypoxia noted today,patient was diagnose to have coronavirus 08/18 workup in the ER revealed small right middle lobe pulmonary embolus, she noted to have hypo kalemia, hypo magnesemia elevated CRP, procalcitonin, and leukocytosis patient started on IV heparin and IV dexamethasone in the emergency room On examination patient awake alert in no distress Lungs facial E had [id number] respiratory distress currently is stable looking, and diminished breath sound with occasional rhonchi bilateral lower lobes Extremities right lower extremity > left Assessment and plan 80-year-old female patient recently diagnosed with COVID-19 presented to [place] with acute hypoxic respiratory failure, sepsis related to COVID-19 with electrolyte abnormalities, diagnosed to have right lower extremity DVT and right middle lobe PE Continue IV heparin started in the emergency room Patient will be continued on IV dexamethasone Will add IV Zosyn, cough medication, frequent position change Will obtain ID consultation for use of remdesivir Replace potassium and magnesium and follow levels closely Elevated troponin likely due to COVID Agree with treatment plan as per APC
--- NOTE | 2020-08-20 17:11 | MHC.CM.PN ---
CM met with pt. IMM 08/20/20. Reviewed and signed per protocol. Very pleasant, A&Ox3, woman. Sl IR[place]QU[place]IS. States she feels much better. Understands need for admission. Lives with her daughter, son-in-law, and 2 grand daughters. Everyone in the home has tested postive for COVID. Pt tells CM that prior to feeling ill, she was driving and independent at daughters home. Daughter is HCP. Neelima Jovel ([phone]). HCP is not on file. Daughter to bring to [facility] if needed. Is still on quarantine. Pt aware that depending how she progresses, she can either go home, need VNA or STR. Spoke with daughter and given update on pt condition. Daughter would hope her mother could have VNA if necessary, instead of STR, due to the Covid. Pt has been to [facility] in past for rehab. Daughter tells CM that her mother fell today in the kitchen. Was using her walker. Daughter heard the fall and found pt lying on her back on the kitchen floor. Daughter and were able to get her up. Pt denied any injury. 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 Both the fall and family Hx of Leyden factor 5 reported to Lidia JACOBO. Not noted in medical record. No referrals placed at this time pending further evaluation. CM to follow for d/c needs.
[2020-08-20] MEDS: Piperacillin Sodium/Tazobactam 3.375 GM in 0.9 % Sodium Chloride 50 ML IV ×2 (17:13→23:58)
--- NOTE | 2020-08-20 18:40 | PC.NURSE ---
Called [facility] for report at [phone]. awaiting call back.
--- NOTE | 2020-08-20 18:54 | PC.NURSE ---
report to Aneta BAINS
[2020-08-20] MEDS: Atorvastatin Calcium 10 MG TABLET PO (21:41)
[2020-08-20] MEDS: Montelukast Sodium 10 MG TABLET PO (21:41)
[2020-08-20] MEDS: Remdesivir 200 MG in 0.9 % Sodium Chloride 210 ML 105 MG IV (21:41)
[2020-08-20 23:13] LABS: PTT Heparin Drip 117.2 SEC (53-77.9)
[2020-08-20] MEDS: 0.9 % Sodium Chloride Flush 3 ML SYRINGE IVFLUSH (23:46)
[2020-08-21 01:09] LABS: PTT Heparin Drip 85.1 SEC (53-77.9)
[2020-08-21 03:43] VITALS: BP 137/81; PULSE 83; RESP 18; TEMP 36.2; O2SAT 97
[2020-08-21] MEDS: Levothyroxine Sodium 88 MCG TABLET PO (05:36)
[2020-08-21] MEDS: Piperacillin Sodium/Tazobactam 3.375 GM in 0.9 % Sodium Chloride 50 ML IV ×2 (07:59→16:18)
[2020-08-21 08:00] VITALS: BP 135/88; PULSE 84; RESP 16; TEMP 36.5; O2SAT 97
[2020-08-21] MEDS: 0.9 % Sodium Chloride Flush 3 ML SYRINGE IVFLUSH ×3 (08:05→20:08)
[2020-08-21 08:29] LABS: Basophils Percent Auto 0.2 % (0-2); Hemoglobin 11.3 g/dl (12.0-16.0); Imm Gran Abs Auto 0.15 X10*3/uL (0.00-0.03); Imm Gran Pct Auto 0.8 % (0.0-0.4); Lymphocytes Absolute Auto 0.5 X10*3/uL (1.2-4.9); Lymphocytes Percent Auto 2.7 % (20-40); MANUAL DIFF FLAG SCAN; Mean Corpuscular HGB Conc 30.5 g/dl (31.0-35.0); Mean Corpuscular Hemoglobin 24.5 pg (27.0-33.0); Mean Corpuscular Volume 80.3 fL (80-98); Mean Platelet Volume 9.1 fL (9.4-12.3); Monocytes Absolute Auto 1.1 X10*3/uL (0.1-1.2); Monocytes Percent Auto 5.8 % (2-11); Neutrophils Absolute Auto 17.7 X10*3/uL (2.0-8.3); Neutrophils Percent Auto 90.5 % (45-73); Platelet Count 367 X10*3/uL (160-400); Red Blood Count 4.61 X10*6/uL (4.20-5.50); Red Cell Distribution Width 16.7 % (11.0-16.0); SCAN SMEAR FLAG 1; White Blood Count 19.5 X10*3/uL (4.8-10.8)
[2020-08-21 08:51] LABS: PTT Heparin Drip 85.4 SEC (53-77.9)
[2020-08-21 08:57] LABS: Magnesium 2.5 mg/dL (1.6-2.6)
[2020-08-21 09:13] LABS: Anion Gap 17 (12-20); Blood Urea Nitrogen 23 mg/dL (9-16); Calcium 8.4 mg/dL (8.4-10.2); Carbon Dioxide 23 mmol/L (22-29); Chloride 106 mmol/L (96-108); Creatinine Clr Calc Pharmacy 50.6; Estimated Glomerular Filt Rate > 60; Glucose Random 142 mg/dL (60-115); Potassium 3.7 mmol/L (3.3-5.1); Sodium 142 mmol/L (135-145)
[2020-08-21 10:45] LABS: SLIDE REVIEW VERIFIED
--- NOTE | 2020-08-21 11:56 | MHC.CM.PN ---
Patient is on 4 liters O2, IV Decadron and IV Remdesivir day 1/4 for +COVID. Also on IV Zosyn for +UTI and IV Heparin gtt for PE and DVT. Discharge disposition is pending PT eval when medically stable. CM will continue to follow patient for discharge needs.
[2020-08-21 12:00] VITALS: BP 116/58; PULSE 96; RESP 18; TEMP 36.2
[2020-08-21 12:20] VITALS: PULSE 88; O2SAT 97
[2020-08-21 15:13] VITALS: BP 130/68; PULSE 94; RESP 16; TEMP 35.9; O2SAT 92
[2020-08-21 15:25] LABS: PTT Heparin Drip 66.6 SEC (53-77.9)
--- NOTE | 2020-08-21 15:58 | HO.PM.IMPN ---
Subjective Subjective Date of Service: 08/21/20 Interval History: Patient is hard of hearing, denies shortness of breath, complaining of mild cough no fever no chills no other acute issues feeling better since admission, on 2 L of nasal cannula finger oximetry 92%. ROS General no headache, no dizziness, no fever chills. CVS no chest pain, no palpitation. Respiratory dry cough, no sob Gastrointestinal no nausea, no vomiting, no abdominal pain Physical Exam Vital Signs: Vital Signs: Last Vital Signs Temp 96.7 F L 08/21/20 15:13 Pulse 94 08/21/20 15:13 Resp 16 08/21/20 15:13 BP 130/68 08/21/20 15:13 Pulse Ox 92 08/21/20 15:13 Body Mass Index 25.0 Objective Data Current Medications Generic Name Dose Route Start Last Admin Trade Name Freq PRN Reason Stop Dose Admin Acetaminophen 650 mg 08/20/20 17:33 Acetaminophen 325 Mg Tablet PO Q6H PRN Pain, Mild (Pain Scale 1-3) Albuterol Sulfate 2 puff 08/20/20 17:33 Albuterol Sulfate 90 Mcg 8 Gm Inhaler INHALE RQ4H PRN Shortness of Breath Atorvastatin Calcium 10 mg 08/20/20 21:00 08/20/20 21:41 Atorvastatin Calcium 10 Mg Tablet PO 10 mg BEDTIME GERALD Administration Dexamethasone Sodium Phosphate 6 mg 08/21/20 09:00 08/21/20 07:58 Dexamethasone Sod Phosphate/Pf 10 Mg/Ml Vial IVPUSH 6 mg DAILY GERALD Administration Docusate Sodium 100 mg 08/20/20 17:33 Docusate Sodium 100 Mg Capsule PO DAILY PRN Constipation Heparin Sodium (Porcine) 2,300 unit 08/20/20 14:44 08/20/20 15:32 Heparin Sodium,Porcine 5,000 Unit/Ml Vial 40 unit/kg (2300 unit) 2,300 unit IVPUSH Administration BOLUS PRN 40 unit/kg - Heparin Protocol Heparin Sodium/Sodium Chloride 25,000 unit in 250 mls @ 0 mls/hr 08/20/20 14:45 08/21/20 09:00 IVCONT 8 units/kg/hr .Q0M GERALD 4.64 mls/hr Titration Protocol Per Protocol Piperacillin Sod/Tazobactam 50 mls @ 100 mls/hr 08/20/20 16:16 08/21/20 08:48 Sod 3.375 gm/ Sodium Chloride IV Infused Q8H GERALD Infusion Remdesivir 100 mg/ Sodium 230 mls @ 115 mls/hr 08/21/20 20:00 Chloride IV 08/24/20 21:59 Q24H GERALD Levothyroxine Sodium 88 mcg 08/21/20 06:00 08/21/20 05:36 Levothyroxine Sodium 88 Mcg Tablet PO 88 mcg DAILY@0600 [facility] Administration Montelukast Sodium 10 mg 08/20/20 21:00 08/20/20 21:41 Montelukast Sodium 10 Mg Tablet PO 10 mg BEDTIME GERALD Administration Pharmacy Consult 1 each 08/20/20 11:10 Consult Rx Perform Med Rec MISCELLANE ONCE PRN Consult order Sodium Chloride 3 ml 08/20/20 17:33 08/21/20 08:05 0.9 % Sodium Chloride Flush 3 Ml Syringe IVFLUSH 3 ml QSHIFT [facility] Administration Tiotropium [place] 2 puff 08/21/20 08:00 08/21/20 12:13 Tiotropium [place] 18 Mcg Cap.W.Dev INHALE 2 puff RDAILY [facility] Administration Labs CBC & Chem 7: 08/21/20 07:53 08/21/20 07:53 Microbiology Microbiology Results: Microbiology 08/20/20 11:24 Blood - Venous Blood Culture - Preliminary No growth after 24 hours. 08/20/20 11:39 Blood - Venous Blood Culture - Preliminary No growth after 24 hours. Assessment and Plan (1) Acute respiratory failure due to COVID-19: Status: Acute (2) Pulmonary embolism: Status: Acute (3) DVT (deep venous thrombosis): Status: Acute Assessment and Plan: 80-year-old male with a history of hyperlipidemia CAD, hypothyroid, asthma, recent diagnosis of COVID-19 who presents to the emergency department with shortness of breath found to be hypoxic and with PE Acute respiratory failure with hypoxia due to COVID-19 Oxygenation is stable on 2 L, patient is not on home O2, hypoxia seems multifactorial due to underlying lung dz, covid, and PE, continue steroids IV heparin and follow clinical course Patient seen by ID and started on remdesivir. Viral Sepsis secondary to covid 19, sepsis resolved,LA wnl. Pneumonia secondary to COVID-19.given elevated procalcitonin patient was started on IV Zosyn case discussed with Dr. Beebe she recommends to discontinue Zosyn since she feels pneumonia related to COVID Will continue prn albuterol/oxygen supportive care, cough medication PE/DVT Right middle lobe pulmonary artery PE and RLE DVT likely r/t covid 19 continue with heparin will transition to oral anticoagulants Hypokalemia/hypomagnesemia Replaced and normalized hypothyroidism continue synthroid HLD continue statin asthma with ?COPD overlap continue home spiriva, theophylline, montelukast and as needed albuterol dvt ppx - heparin code status full code
--- NOTE | 2020-08-21 16:08 | P.CNID_ITS ---
History of Present Illness Data of Consult Service Date: 08/21/20 Requesting physician: Ute Palacios Primary Care Provider: Manny Meadows MD [facility] Reason for consult: COVID She presents with cough and shortness of breath for four days She has no nausea or vomiting Her son-in-law had COVID one week ago and her daughter has as well Review of Systems Review of Systems: Yes all other systems are reviewed and are negative PMFSH Past Medical History Medical History Asthma CAD (coronary artery disease) History of breast cancer History of chemotherapy HLD (hyperlipidemia) Hypothyroid Functional capacity: uses cane/walker Family History Family History Other No cardiac disease Family history: reviewed and not pertinent Surgical History Surgical History S/P triple vessel bypass Social History Social History Household Members: Family Housing: House Do you presently have visiting nurse or other home services: No Alcohol intake: never Smoking Status: Never smoker Smoked in Last 30 Days: No Use of substances other than those prescribed or required for medical reasons: No Have you been hit, kicked, punched, or otherwise hurt by someone within the past year? If so, by whom?: No Do you feel safe in your current relationship?: No Current Relationship Is there a partner from a previous relationship who is making you feel unsafe now?: No Are you made to feel afraid or neglected: No Advance Directives: No Advance Directives Information Provided: No Do you have thoughts of harming others: None Recently lost weight without trying: No service: No Current occupational status: retired Meds Allergies Allergy/AdvReac Type Severity Reaction Status Date / Time levofloxacin [From Levaquin] Allergy Unknown Unknown Verified 08/20/20 13:00 Active Medications: Current Medications Generic Name Dose Route Start Last Admin Trade Name Freq PRN Reason Stop Dose Admin Acetaminophen 650 mg 08/20/20 17:33 Acetaminophen 325 Mg Tablet PO Q6H PRN Pain, Mild (Pain Scale 1-3) Albuterol Sulfate 2 puff 08/20/20 17:33 Albuterol Sulfate 90 Mcg 8 Gm Inhaler INHALE RQ4H PRN Shortness of Breath Atorvastatin Calcium 10 mg 08/20/20 21:00 08/20/20 21:41 Atorvastatin Calcium 10 Mg Tablet PO 10 mg BEDTIME GERALD Administration Dexamethasone Sodium Phosphate 6 mg 08/21/20 09:00 08/21/20 07:58 Dexamethasone Sod Phosphate/Pf 10 Mg/Ml Vial IVPUSH 6 mg DAILY GERALD Administration Docusate Sodium 100 mg 08/20/20 17:33 Docusate Sodium 100 Mg Capsule PO DAILY PRN Constipation Heparin Sodium (Porcine) 2,300 unit 08/20/20 14:44 08/20/20 15:32 Heparin Sodium,Porcine 5,000 Unit/Ml Vial 40 unit/kg (2300 unit) 2,300 unit IVPUSH Administration BOLUS PRN 40 unit/kg - Heparin Protocol Heparin Sodium/Sodium Chloride 25,000 unit in 250 mls @ 0 mls/hr 08/20/20 14:45 08/21/20 09:00 IVCONT 8 units/kg/hr .Q0M GERALD 4.64 mls/hr Titration Protocol Per Protocol Piperacillin Sod/Tazobactam 50 mls @ 100 mls/hr 08/20/20 16:16 08/21/20 08:48 Sod 3.375 gm/ Sodium Chloride IV Infused Q8H GERALD Infusion Remdesivir 100 mg/ Sodium 230 mls @ 115 mls/hr 08/21/20 20:00 Chloride IV 08/24/20 21:59 Q24H GERALD Levothyroxine Sodium 88 mcg 08/21/20 06:00 08/21/20 05:36 Levothyroxine Sodium 88 Mcg Tablet PO 88 mcg DAILY@0600 [facility] Administration Montelukast Sodium 10 mg 08/20/20 21:00 08/20/20 21:41 Montelukast Sodium 10 Mg Tablet PO 10 mg BEDTIME GERALD Administration Pharmacy Consult 1 each 08/20/20 11:10 Consult Rx Perform Med Rec MISCELLANE ONCE PRN Consult order Sodium Chloride 3 ml 08/20/20 17:33 08/21/20 08:05 0.9 % Sodium Chloride Flush 3 Ml Syringe IVFLUSH 3 ml QSHIFT GERALD Administration Tiotropium [place] 2 puff 08/21/20 08:00 08/21/20 12:13 Tiotropium [place] 18 Mcg Cap.W.Dev INHALE 2 puff RDAILY [facility] Administration Home Medications Medication Instructions Recorded Confirmed Last Taken Type albuterol sulfate 2.5 mg INHALATION Q4H PRN 08/20/20 08/20/20 08/20/20 History azithromycin 250 mg PO MOWEFR@0900 08/20/20 08/20/20 08/19/20 History beclomethasone dipropionate [Qvar 1 puff PO BID 08/20/20 Unknown History RediHaler] doxycycline hyclate 100 mg PO BID 08/20/20 08/20/20 08/19/20 History fluticasone propion-salmeterol 1 puff PO BID 08/20/20 08/20/20 Unknown History [Tu Inhub] furosemide 20 - 40 mg PO DAILY PRN 08/20/20 08/20/20 Unknown History levothyroxine 88 mcg PO DAILY 08/20/20 08/20/20 08/20/20 History montelukast 10 mg PO BEDTIME 08/20/20 08/20/20 08/19/20 History prednisone See Taper PO DAILY 08/20/20 08/20/20 08/20/20 History simvastatin 20 mg PO BEDTIME 08/20/20 08/20/20 08/19/20 History theophylline 300 mg PO DAILY 08/20/20 08/20/20 08/19/20 History tiotropium bromide [Spiriva 2 puff INHALATION DAILY 08/20/20 08/20/20 Unknown History Respimat] Physical Exam Vital Signs: Vital Signs: Last Vital Signs Temp 96.7 F L 08/21/20 15:13 Pulse 94 08/21/20 15:13 Resp 16 08/21/20 15:13 BP 130/68 08/21/20 15:13 Pulse Ox 92 08/21/20 15:13 Body Mass Index 25.0 Const: General: cooperative HENMT: Head: Yes normal to inspection Mouth: Normal oral and palatal mucosa present Resp: Effort & Inspection: normal respiratory effort Cardio: Rate: regular rate Rhythm: regular rhythm GI: Palpation (GI): Soft to palpation and nontender Skin: General skin exam: no rashes or lesions noted Extrem: General: Yes normal to inspection Results Labs CBC & Chem 7: 08/21/20 07:53 08/21/20 07:53 Labs: Short CBC 08/21/20 Range/Units 07:53 WBC 19.5 H (4.8-10.8) X10*3/uL Hgb 11.3 L (12.0-16.0) g/dl Hct 37.0 (37-47) % Plt Count 367 (160-400) X10*3/uL BMP 08/21/20 07:53 Sodium 142 Potassium 3.7 D Chloride 106 Carbon Dioxide 23 BUN 23 H Creatinine 0.73 Calcium 8.4 Microbiology Microbiology Results: Microbiology 08/20/20 11:24 Blood - Venous Blood Culture - Preliminary No growth after 24 hours. 08/20/20 11:39 Blood - Venous Blood Culture - Preliminary No growth after 24 hours. Assessment and Plan (1) Acute respiratory failure due to COVID-19: Problem details: COVID,respiratory acute No lobar pneumonia or purulent sputum,some increased procalcitonin Status: Acute Remdesivir Steroids Oxygen Would stop antibiotics Anticoagulation (2) Pulmonary embolism: Qualifiers: Pulmonary embolism type: single subsegmental (without acute cor pulmonale) Qualified Code(s): I26.93 - Single subsegmental pulmonary embolism without acute cor pulmonale Status: Acute (3) DVT (deep venous thrombosis): Qualifiers: Affected thrombotic vein of extremity: femoral Chronicity: acute DVT location: lower extremity Laterality: right Qualified Code(s): I82.411 - Acute embolism and thrombosis of right femoral vein Status: Acute
[2020-08-21] MEDS: Heparin Sodium,Porcine/1/2NS 25,000 UNIT/250 ML IV.SOLN 4.64 UNIT IVCONT (16:29)
[2020-08-21 20:00] VITALS: PULSE 75; RESP 20; TEMP 36.2; O2SAT 97
[2020-08-21] MEDS: Remdesivir 100 MG in 0.9 % Sodium Chloride 230 ML 115 MG IV (20:08)
[2020-08-21] MEDS: Atorvastatin Calcium 10 MG TABLET PO (20:08)
[2020-08-21] MEDS: Montelukast Sodium 10 MG TABLET PO (20:08)
[2020-08-21 21:17] LABS: PTT Heparin Drip 59.4 SEC (53-77.9)
[2020-08-22] VITALS (8 sets, daily range): BP systolic 134–166; BP diastolic 65–74; PULSE 65–112; RESP 18–20; TEMP 36.2–37; O2SAT 93–97
[2020-08-22] MEDS: Albuterol Sulfate 90 MCG 8 GM INHALER 2 PUFF INHALE (03:47)
[2020-08-22] MEDS: Levothyroxine Sodium 88 MCG TABLET PO (06:00)
[2020-08-22 07:10] LABS: PTT Heparin Drip 54.6 SEC (53-77.9)
[2020-08-22] MEDS: 0.9 % Sodium Chloride Flush 3 ML SYRINGE IVFLUSH ×3 (08:22→21:06)
--- NOTE | 2020-08-22 16:56 | P.PNIM_ITS ---
Subjective Subjective Date of Service: 08/22/20 Interval History: Patient feeling better this morning offers no acute complaints denies shortness of breath or cough. ROS General no headache, no dizziness, no fever chills. CVS no chest pain, no palpitation. Respiratory dry cough, no sob Gastrointestinal no nausea, no vomiting, no abdominal pain Physical Exam Vital Signs: Vital Signs: Last Vital Signs Temp 98.6 F 08/22/20 15:55 Pulse 75 08/22/20 15:55 Resp 18 08/22/20 15:55 BP 144/74 H 08/22/20 15:55 Pulse Ox 96 08/22/20 15:55 Body Mass Index 25.0 General patient resting comfortably in no acute distress. Neck is supple no JVD. CVS regular rate rhythm, Respiratory lungs clear to auscultation, no respiratory distress, no wheeze, no rhonchi. Gastrointestinal abdomen soft, nontender, bowel sounds audible, no guarding , no rigidity. Extremities right lower extremity bigger than left as per patient is chronic Neuro nonfocal hard of hearing Skin no rash Objective Data Current Medications Generic Name Dose Route Start Last Admin Trade Name Freq PRN Reason Stop Dose Admin Acetaminophen 650 mg 08/20/20 17:33 Acetaminophen 325 Mg Tablet PO Q6H PRN Pain, Mild (Pain Scale 1-3) Albuterol Sulfate 2 puff 08/20/20 17:33 08/22/20 03:47 Albuterol Sulfate 90 Mcg 8 Gm Inhaler INHALE 2 puff RQ4H PRN Administration Shortness of Breath Atorvastatin Calcium 10 mg 08/20/20 21:00 08/21/20 20:08 Atorvastatin Calcium 10 Mg Tablet PO 10 mg BEDTIME GERALD Administration Dexamethasone Sodium Phosphate 6 mg 08/21/20 09:00 08/22/20 08:24 Dexamethasone Sod Phosphate/Pf 10 Mg/Ml Vial IVPUSH 6 mg DAILY GERALD Administration Docusate Sodium 100 mg 08/20/20 17:33 Docusate Sodium 100 Mg Capsule PO DAILY PRN Constipation Heparin Sodium (Porcine) 2,300 unit 08/20/20 14:44 08/20/20 15:32 Heparin Sodium,Porcine 5,000 Unit/Ml Vial 40 unit/kg (2300 unit) 2,300 unit IVPUSH Administration BOLUS PRN 40 unit/kg - Heparin Protocol Heparin Sodium/Sodium Chloride 25,000 unit in 250 mls @ 0 mls/hr 08/20/20 14:45 08/22/20 07:00 IVCONT 8 units/kg/hr .Q0M GERALD 4.64 mls/hr Titration Protocol Per Protocol Remdesivir 100 mg/ Sodium 230 mls @ 115 mls/hr 08/21/20 20:00 08/21/20 22:15 Chloride IV 08/24/20 21:59 Infused Q24H GERALD Infusion Levothyroxine Sodium 88 mcg 08/21/20 06:00 08/22/20 06:00 Levothyroxine Sodium 88 Mcg Tablet PO 88 mcg DAILY@0600 GERALD Administration Montelukast Sodium 10 mg 08/20/20 21:00 08/21/20 20:08 Montelukast Sodium 10 Mg Tablet PO 10 mg BEDTIME GERALD Administration Pharmacy Consult 1 each 08/20/20 11:10 Consult Rx Perform Med Rec MISCELLANE ONCE PRN Consult order Sodium Chloride 3 ml 08/20/20 17:33 08/22/20 15:29 0.9 % Sodium Chloride Flush 3 Ml Syringe IVFLUSH 3 ml QSHIFT GERALD Administration Tiotropium [place] 2 puff 08/21/20 08:00 08/21/20 12:13 Tiotropium [place] 18 Mcg Cap.W.Dev INHALE 2 puff RDAILY GERALD Administration Labs CBC & Chem 7: 08/21/20 07:53 08/21/20 07:53 Microbiology Microbiology Results: Microbiology 08/20/20 11:39 Blood - Venous Blood Culture - Preliminary No growth after 48 hours. 08/20/20 11:24 Blood - Venous Blood Culture - Preliminary No growth after 48 hours. Assessment and Plan (1) Acute respiratory failure due to COVID-19: Problem details: COVID,respiratory acute No lobar pneumonia or purulent sputum,some increased procalcitonin Status: Acute (2) Pulmonary embolism: Status: Acute (3) DVT (deep venous thrombosis): Status: Acute Assessment and Plan: 80-year-old male with a history of hyperlipidemia CAD, hypothyroid, asthma, recent diagnosis of COVID-19 who presents to the emergency department with shortness of breath found to be hypoxic and with PE Acute respiratory failure with hypoxia due to COVID-19 Oxygenation requirement is increasing currently 3.5 finger oximetry 96, patient is not on home O2, hypoxia seems multifactorial due to underlying lung dz, covid, and PE, continue IV dexamethasone day 2 on iv heparin continue supportive care follow clinical course Patient seen by ID and started on remdesivir day 2. Viral Sepsis secondary to covid 19, sepsis resolved,LA wnl. Pneumonia secondary to COVID-19. continue prn albuterol/oxygen supportive care, cough medication PE/DVT Right middle lobe pulmonary artery PE and RLE DVT, D-dimer 379 likely r/t covid 19 on iv heparin will transition to oral anticoagulants Eliquis Hypokalemia/hypomagnesemia Replaced and normalized hypothyroidism continue synthroid HLD continue statin asthma with ?COPD overlap No acute exacerbation, continue home spiriva, theophylline, montelukast and as needed albuterol dvt ppx - heparin code status full code
[2020-08-22] MEDS: Heparin Sodium,Porcine/1/2NS 25,000 UNIT/250 ML IV.SOLN 4.64 UNIT IVCONT (19:07)
[2020-08-22] MEDS: Remdesivir 100 MG in 0.9 % Sodium Chloride 230 ML 115 MG IV (21:06)
[2020-08-22] MEDS: Montelukast Sodium 10 MG TABLET PO (21:06)
[2020-08-22] MEDS: Atorvastatin Calcium 10 MG TABLET PO (21:06)
[2020-08-23 03:39] VITALS: BP 168/79; PULSE 68; RESP 20; TEMP 36.1; O2SAT 96
[2020-08-23] MEDS: Levothyroxine Sodium 88 MCG TABLET PO (06:19)
[2020-08-23 06:24] LABS: PTT Heparin Drip 46.7 SEC (53-77.9)
[2020-08-23 07:39] VITALS: BP 181/82; PULSE 68; RESP 18; TEMP 36.5; O2SAT 93
[2020-08-23] MEDS: Heparin Sodium,Porcine 5,000 UNIT/ML VIAL 2300 UNIT IVPUSH (07:43)
[2020-08-23] MEDS: 0.9 % Sodium Chloride Flush 3 ML SYRINGE IVFLUSH ×3 (07:43→20:22)
[2020-08-23 07:53] VITALS: PULSE 75; O2SAT 92
--- NOTE | 2020-08-23 09:31 | HO.PM.IMPN ---
Subjective Subjective Date of Service: 08/23/20 Interval History: Patient offers no complaints of shortness of breath and cough, no fever, no chills, slept well overnight, wants to go home. ROS CVS no chest pain, no palpitation. Respiratory cough improving, no sob Gastrointestinal no nausea, no vomiting, no abdominal pain Physical Exam Vital Signs: Vital Signs: Last Vital Signs Temp 97.7 F 08/23/20 07:39 Pulse 75 08/23/20 07:53 Resp 18 08/23/20 07:39 BP 181/82 H 08/23/20 07:39 Pulse Ox 93 08/23/20 07:39 Body Mass Index 25.0 General resting comfortably in no acute distress. Neck is supple no JVD. CVS regular rate rhythm, Respiratory lungs clear to auscultation, no respiratory distress, no wheeze, no rhonchi. Gastrointestinal abdomen soft, nontender, bowel sounds audible, no guarding , no rigidity. Extremities right lower extremity swelling significantly improved, but right lower extremity chronically bigger than left Neuro nonfocal hard of hearing Skin no rash Objective Data Current Medications Generic Name Dose Route Start Last Admin Trade Name Freq PRN Reason Stop Dose Admin Acetaminophen 650 mg 08/20/20 17:33 Acetaminophen 325 Mg Tablet PO Q6H PRN Pain, Mild (Pain Scale 1-3) Albuterol Sulfate 2 puff 08/20/20 17:33 08/22/20 03:47 Albuterol Sulfate 90 Mcg 8 Gm Inhaler INHALE 2 puff RQ4H PRN Administration Shortness of Breath Atorvastatin Calcium 10 mg 08/20/20 21:00 08/22/20 21:06 Atorvastatin Calcium 10 Mg Tablet PO 10 mg BEDTIME GERALD Administration Dexamethasone Sodium Phosphate 6 mg 08/21/20 09:00 08/23/20 07:44 Dexamethasone Sod Phosphate/Pf 10 Mg/Ml Vial IVPUSH 6 mg DAILY GERALD Administration Docusate Sodium 100 mg 08/20/20 17:33 Docusate Sodium 100 Mg Capsule PO DAILY PRN Constipation Remdesivir 100 mg/ Sodium 230 mls @ 115 mls/hr 08/21/20 20:00 08/23/20 00:52 Chloride IV 08/24/20 21:59 Infused Q24H [facility] Infusion Levothyroxine Sodium 88 mcg 08/21/20 06:00 08/23/20 06:19 Levothyroxine Sodium 88 Mcg Tablet PO 88 mcg DAILY@0600 [facility] Administration Montelukast Sodium 10 mg 08/20/20 21:00 08/22/20 21:06 Montelukast Sodium 10 Mg Tablet PO 10 mg BEDTIME GERALD Administration Pharmacy Consult 1 each 08/20/20 11:10 Consult Rx Perform Med Rec MISCELLANE ONCE PRN Consult order Sodium Chloride 3 ml 08/20/20 17:33 08/23/20 07:43 0.9 % Sodium Chloride Flush 3 Ml Syringe IVFLUSH 3 ml QSHIFT [facility] Administration Tiotropium [place] 2 puff 08/21/20 08:00 08/23/20 07:51 Tiotropium [place] 18 Mcg Cap.W.Dev INHALE 2 puff RDAILY [facility] Administration Labs CBC & Chem 7: 08/21/20 07:53 08/21/20 07:53 Microbiology Microbiology Results: Microbiology 08/20/20 11:39 Blood - Venous Blood Culture - Preliminary No growth after 48 hours. 08/20/20 11:24 Blood - Venous Blood Culture - Preliminary No growth after 48 hours. Assessment and Plan (1) Acute respiratory failure due to COVID-19: Problem details: COVID,respiratory acute No lobar pneumonia or purulent sputum,some increased procalcitonin Status: Acute (2) Pulmonary embolism: Status: Acute (3) DVT (deep venous thrombosis): Status: Acute Assessment and Plan: 80-year-old male with a history of hyperlipidemia CAD, hypothyroid, asthma, recent diagnosis of COVID-19 who presents to the emergency department with shortness of breath found to be hypoxic and with PE Acute respiratory failure with hypoxia due to COVID-19 No further increase in oxygen requirement currently stable 93 96% on 2 -3 L patient not on home oxygen, hypoxia likely related to PE and COVID-19 infection, continue IV dexamethasone day 3 Continue anticoagulation for PE and remdesivir day 3/5. Wean O2 Viral Sepsis secondary to covid 19, sepsis resolved,LA wnl. Pneumonia secondary to COVID-19. continue prn albuterol/oxygen supportive care, cough medication, no evidence of bacterial infection. PE/DVT Right middle lobe pulmonary artery PE and RLE DVT, D-dimer 379 likely r/t covid 19 on iv heparin will transition to oral anticoagulants Eliquis today Hypokalemia/hypomagnesemia Replaced and normalized hypothyroidism continue synthroid HLD continue statin asthma with ?COPD overlap, No acute exacerbation, continue home spiriva, theophylline, montelukast and as needed albuterol dvt ppx - heparin code status full code
[2020-08-23] MEDS: Apixaban 5 MG TABLET 10 MG PO ×2 (11:11→20:22)
[2020-08-23 11:18] VITALS: BP 161/78; PULSE 74; RESP 18; TEMP 37; O2SAT 97
--- NOTE | 2020-08-23 15:27 | PC.NURSE ---
0730 PTT -HD 46.7. Bolus given and drip adjusted per protocol. 0745 Heparin drip stopped per MD order. Eliquis ordered and administered. At this time patient denies any signs of bleeding or complains. Will continue to monitor and assess.
[2020-08-23 15:48] VITALS: BP 165/80; PULSE 70; RESP 19; TEMP 36.2; O2SAT 96
[2020-08-23 20:00] VITALS: BP 166/85; PULSE 70; RESP 20; TEMP 36.4; O2SAT 98
[2020-08-23] MEDS: Atorvastatin Calcium 10 MG TABLET PO (20:22)
[2020-08-23] MEDS: Remdesivir 100 MG in 0.9 % Sodium Chloride 230 ML 115 MG IV (20:22)
[2020-08-23] MEDS: Montelukast Sodium 10 MG TABLET PO (20:22)
[2020-08-24] VITALS (9 sets, daily range): BP systolic 139–162; BP diastolic 70–80; PULSE 66–92; RESP 18–20; TEMP 36.3–36.6; O2SAT 91–98
[2020-08-24] MEDS: Levothyroxine Sodium 88 MCG TABLET PO (05:31)
[2020-08-24 06:22] LABS: MANUAL DIFF FLAG NO
[2020-08-24 06:41] LABS: Basophils Percent Auto 0.2 % (0-2); Hematocrit 38.4 % (37-47); Hemoglobin 11.4 g/dl (12.0-16.0); Imm Gran Abs Auto 0.15 X10*3/uL (0.00-0.03); Imm Gran Pct Auto 1.4 % (0.0-0.4); Lymphocytes Absolute Auto 0.7 X10*3/uL (1.2-4.9); Mean Corpuscular HGB Conc 29.7 g/dl (31.0-35.0); Mean Corpuscular Volume 80.8 fL (80-98); Mean Platelet Volume 9.8 fL (9.4-12.3); Monocytes Absolute Auto 1.1 X10*3/uL (0.1-1.2); Monocytes Percent Auto 10.7 % (2-11); Neutrophils Absolute Auto 8.4 X10*3/uL (2.0-8.3); Neutrophils Percent Auto 80.7 % (45-73); Platelet Count 364 X10*3/uL (160-400); Red Blood Count 4.75 X10*6/uL (4.20-5.50); Red Cell Distribution Width 16.5 % (11.0-16.0); White Blood Count 10.4 X10*3/uL (4.8-10.8)
[2020-08-24 06:58] LABS: Anion Gap 14 (12-20); Blood Urea Nitrogen 28 mg/dL (9-16); Calcium 8.4 mg/dL (8.4-10.2); Carbon Dioxide 25 mmol/L (22-29); Chloride 109 mmol/L (96-108); Creatinine Clr Calc Pharmacy 57.7; Estimated Glomerular Filt Rate > 60; Glucose Random 185 mg/dL (60-115); Potassium 4.3 mmol/L (3.3-5.1); Sodium 144 mmol/L (135-145)
[2020-08-24] MEDS: Apixaban 5 MG TABLET 10 MG PO ×2 (07:40→19:47)
[2020-08-24] MEDS: 0.9 % Sodium Chloride Flush 3 ML SYRINGE IVFLUSH ×3 (07:40→19:47)
--- NOTE | 2020-08-24 09:25 | MHC.CM.PN ---
Patient continues to need O2 at 3 liters via [place]. Also on IV Decadron and IV Remdesivir for +COVID. Discharge plan is pending PT angel. CM will continue to follow for discharge needs.
--- NOTE | 2020-08-24 14:50 | HO.PM.IMPN ---
Subjective Subjective Date of Service: 08/24/20 Interval History: Offers no other acute complaints, feels weak refusing to ambulate at home walk with no difficulty, no fever chills no other acute issues overnight. ROS CVS no chest pain, no palpitation. Respiratory cough improving, no sob Gastrointestinal no nausea, no vomiting, no abdominal pain Physical Exam Vital Signs: Vital Signs: Last Vital Signs Temp 97.4 F 08/24/20 12:00 Pulse 92 08/24/20 12:00 Resp 18 08/24/20 12:00 BP 146/71 H 08/24/20 13:08 Pulse Ox 94 08/24/20 12:00 Body Mass Index 25.0 General resting comfortably in no acute distress. Neck is supple no JVD. CVS regular rate rhythm, Respiratory lungs bilateral basilar rhonchi, no respiratory distress, no wheeze Gastrointestinal abdomen soft, nontender, bowel sounds audible, no guarding , no rigidity. Extremities right lower extremity swelling significantly improved, but right lower extremity chronically bigger than left Neuro nonfocal hard of hearing Skin no rash Objective Data Current Medications Generic Name Dose Route Start Last Admin Trade Name Freq PRN Reason Stop Dose Admin Acetaminophen 650 mg 08/20/20 17:33 Acetaminophen 325 Mg Tablet PO Q6H PRN Pain, Mild (Pain Scale 1-3) Albuterol Sulfate 2 puff 08/20/20 17:33 08/22/20 03:47 Albuterol Sulfate 90 Mcg 8 Gm Inhaler INHALE 2 puff RQ4H PRN Administration Shortness of Breath Apixaban 10 mg 08/23/20 10:00 08/24/20 07:40 Apixaban 5 Mg Tablet PO 10 mg BID GERALD Administration Atorvastatin Calcium 10 mg 08/20/20 21:00 08/23/20 20:22 Atorvastatin Calcium 10 Mg Tablet PO 10 mg BEDTIME GERALD Administration Dexamethasone Sodium Phosphate 6 mg 08/21/20 09:00 08/24/20 07:39 Dexamethasone Sod Phosphate/Pf 10 Mg/Ml Vial IVPUSH 6 mg DAILY GERALD Administration Docusate Sodium 100 mg 08/20/20 17:33 Docusate Sodium 100 Mg Capsule PO DAILY PRN Constipation Remdesivir 100 mg/ Sodium 230 mls @ 115 mls/hr 08/21/20 20:00 08/23/20 22:28 Chloride IV 08/24/20 21:59 Infused Q24H GERALD Infusion Levothyroxine Sodium 88 mcg 08/21/20 06:00 08/24/20 05:31 Levothyroxine Sodium 88 Mcg Tablet PO 88 mcg DAILY@0600 [facility] Administration Montelukast Sodium 10 mg 08/20/20 21:00 08/23/20 20:22 Montelukast Sodium 10 Mg Tablet PO 10 mg BEDTIME GERALD Administration Pharmacy Consult 1 each 08/20/20 11:10 Consult Rx Perform Med Rec MISCELLANE ONCE PRN Consult order Sodium Chloride 3 ml 08/20/20 17:33 08/24/20 07:40 0.9 % Sodium Chloride Flush 3 Ml Syringe IVFLUSH 3 ml QSHIFT GERALD Administration Tiotropium [place] 2 puff 08/21/20 08:00 08/24/20 07:52 Tiotropium [place] 18 Mcg Cap.W.Dev INHALE 2 puff RDAILY GERALD Administration Labs CBC & Chem 7: 08/24/20 05:32 08/24/20 05:32 Microbiology Microbiology Results: Microbiology 08/20/20 11:39 Blood - Venous Blood Culture - Preliminary No growth after 48 hours. 08/20/20 11:24 Blood - Venous Blood Culture - Preliminary No growth after 48 hours. Assessment and Plan (1) Acute respiratory failure due to COVID-19: Problem details: COVID,respiratory acute No lobar pneumonia or purulent sputum,some increased procalcitonin Status: Acute (2) Pulmonary embolism: Status: Acute (3) DVT (deep venous thrombosis): Status: Acute Assessment and Plan: 80-year-old male with a history of hyperlipidemia CAD, hypothyroid, asthma, recent diagnosis of COVID-19 who presents to the emergency department with shortness of breath found to be hypoxic and with PE Acute respiratory failure with hypoxia due to COVID-19 No further increase in oxygen requirement currently stable 93- 96% on 2 L patient not on home oxygen, hypoxia likely related to PE and COVID-19 infection, Will DC oxygen and follow finger oximetry today,on IV dexamethasone day 10/03 will change to by mouth dexamethasone upon discharge Continue anticoagulation for PE and remdesivir last dose today. Since patient feels weak to ambulate will reassess for discharge tomorrow. Viral Sepsis secondary to covid 19, sepsis resolved,LA wnl. Pneumonia secondary to COVID-19. continue prn albuterol/oxygen supportive care, cough medication, no evidence of bacterial infection. PE/DVT Right middle lobe pulmonary artery PE and RLE DVT, D-dimer 379 likely r/t covid 19 s/p iv heparin now transition to oral anticoagulants Eliquis Hypokalemia/hypomagnesemia Replaced and normalized hypothyroidism continue synthroid HLD continue statin asthma with ?COPD overlap, No acute exacerbation, continue home spiriva, theophylline, montelukast and as needed albuterol dvt ppx - heparin code status full code
[2020-08-24] MEDS: Montelukast Sodium 10 MG TABLET PO (19:47)
[2020-08-24] MEDS: Atorvastatin Calcium 10 MG TABLET PO (19:47)
[2020-08-24] MEDS: Remdesivir 100 MG in 0.9 % Sodium Chloride 230 ML 115 MG IV (19:47)
[2020-08-25] VITALS (9 sets, daily range): BP systolic 134–167; BP diastolic 72–86; PULSE 72–91; RESP 18–20; TEMP 36.1–36.9; O2SAT 90–99
[2020-08-25] MEDS: Levothyroxine Sodium 88 MCG TABLET PO (05:55)
[2020-08-25] MEDS: 0.9 % Sodium Chloride Flush 3 ML SYRINGE IVFLUSH ×2 (07:51→15:01)
[2020-08-25] MEDS: Apixaban 5 MG TABLET 10 MG PO ×2 (08:28→21:41)
--- NOTE | 2020-08-25 13:47 | MHC.CM.PN ---
CM met with patient re: PT is recommending rehab. [facility]. Referrals made via allscripts. CM will continue to follow for discharge needs.
--- NOTE | 2020-08-25 16:08 | HO.PM.IMPN ---
Subjective Subjective Date of Service: 08/25/20 Interval History: Patient seen and examined at bedside reported weakness sob improving ROS CVS no chest pain, no palpitation. Respiratory cough improving, no sob Gastrointestinal no nausea, no vomiting, no abdominal pain Constitutional Constitutional: Denies chills Cardiovascular Cardiovascular: Denies chest pain and Denies dyspnea Respiratory Respiratory: Reports cough and Denies dyspnea Gastrointestinal Gastrointestinal: Denies abdominal pain Physical Exam Vital Signs: Vital Signs: Last Vital Signs Temp 97.0 F 08/25/20 16:00 Pulse 78 08/25/20 16:00 Resp 18 08/25/20 16:00 BP 167/81 H 08/25/20 16:00 Pulse Ox 92 08/25/20 16:00 Body Mass Index 25.0 Const: General: cooperative, alert and awake Nutritional Appearance: well nourished Orientation/consciousness: patient oriented x3 HENMT: Head: Yes normocephalic and Yes atraumatic Eyes: Sclerae: sclerae normal Chest: Chest palpation & inspection: normal inspection of the chest Resp: Effort & Inspection: tachypneic Cardio: Rate: regular rate Rhythm: regular rhythm GI: Palpation (GI): Soft to palpation and nontender Skin: General skin exam: no rashes or lesions noted Neuro: General: patient oriented x3 Cranial nerves: Yes CN's II-XII intact bilaterally and Yes Bilaterally intact EOM present Extrem: Other: RLE swelling General: Yes normal to inspection Objective Data Current Medications Generic Name Dose Route Start Last Admin Trade Name Freq PRN Reason Stop Dose Admin Acetaminophen 650 mg 08/20/20 17:33 Acetaminophen 325 Mg Tablet PO Q6H PRN Pain, Mild (Pain Scale 1-3) Albuterol Sulfate 2 puff 08/20/20 17:33 08/22/20 03:47 Albuterol Sulfate 90 Mcg 8 Gm Inhaler INHALE 2 puff RQ4H PRN Administration Shortness of Breath Apixaban 10 mg 08/23/20 10:00 08/25/20 08:28 Apixaban 5 Mg Tablet PO 10 mg BID GERALD Administration Atorvastatin Calcium 10 mg 08/20/20 21:00 08/24/20 19:47 Atorvastatin Calcium 10 Mg Tablet PO 10 mg BEDTIME GERALD Administration Dexamethasone Sodium Phosphate 6 mg 08/21/20 09:00 08/25/20 08:28 Dexamethasone Sod Phosphate/Pf 10 Mg/Ml Vial IVPUSH 6 mg DAILY GERALD Administration Docusate Sodium 100 mg 08/20/20 17:33 Docusate Sodium 100 Mg Capsule PO DAILY PRN Constipation Levothyroxine Sodium 88 mcg 08/21/20 06:00 08/25/20 05:55 Levothyroxine Sodium 88 Mcg Tablet PO 88 mcg DAILY@0600 GERALD Administration Montelukast Sodium 10 mg 08/20/20 21:00 08/24/20 19:47 Montelukast Sodium 10 Mg Tablet PO 10 mg BEDTIME GERALD Administration Pharmacy Consult 1 each 08/20/20 11:10 Consult Rx Perform Med Rec MISCELLANE ONCE PRN Consult order Sodium Chloride 3 ml 08/20/20 17:33 08/25/20 15:01 0.9 % Sodium Chloride Flush 3 Ml Syringe IVFLUSH 3 ml QSHIFT GERALD Administration Tiotropium [place] 2 puff 08/21/20 08:00 08/25/20 08:21 Tiotropium [place] 18 Mcg Cap.W.Dev INHALE 2 puff RDAILY GERALD Administration Labs CBC & Chem 7: 08/24/20 05:32 08/24/20 05:32 Microbiology Microbiology Results: Microbiology 08/20/20 11:24 Blood - Venous Blood Culture - Final No growth after 5 days. 08/20/20 11:39 Blood - Venous Blood Culture - Final No growth after 5 days. Assessment and Plan (1) Acute respiratory failure due to COVID-19: Status: Acute (2) Pulmonary embolism: Status: Acute (3) DVT (deep venous thrombosis): Status: Acute Assessment and Plan: 80-year-old male with a history of hyperlipidemia CAD, hypothyroid, asthma, recent diagnosis of COVID-19 who presents to the emergency department with shortness of breath found to be hypoxic and with PE Acute respiratory failure with hypoxia due to COVID-19 able to wean down from oxygen currently saturating around 92 continue IV dexamethasone day 11/02 Continue anticoagulation for PE received remdesivir Viral Sepsis secondary to covid 19, sepsis resolved,LA wnl. Pneumonia secondary to COVID-19. continue prn albuterol/oxygen supportive care, cough medication, no evidence of bacterial infection. PE/DVT Right middle lobe pulmonary artery PE and RLE DVT, D-dimer 379 likely r/t covid 19 s/p iv heparin currently on Eliquis Hypokalemia/hypomagnesemia Replaced and normalized hypothyroidism continue synthroid HLD continue statin Asthma with ?COPD overlap, No acute exacerbation continue home spiriva, theophylline, montelukast and as needed albuterol Dvt ppx - heparin code status full code
[2020-08-25] MEDS: Atorvastatin Calcium 10 MG TABLET PO (21:41)
[2020-08-25] MEDS: Montelukast Sodium 10 MG TABLET PO (21:41)
[2020-08-26] MEDS: 0.9 % Sodium Chloride Flush 3 ML SYRINGE IVFLUSH ×2 (00:49→08:57)
[2020-08-26 03:17] VITALS: BP 162/74; PULSE 46; RESP 18; TEMP 36.6; O2SAT 90
[2020-08-26] MEDS: Levothyroxine Sodium 88 MCG TABLET PO (06:00)
[2020-08-26 08:00] VITALS: BP 146/69; PULSE 106; RESP 30; TEMP 36.9; O2SAT 91
[2020-08-26 08:03] VITALS: PULSE 103; O2SAT 93
[2020-08-26] MEDS: Apixaban 5 MG TABLET 10 MG PO (08:57)
--- NOTE | 2020-08-26 10:07 | PC.NURSE ---
Anticipating discharge to rehab Pt. A+Ox3, [place], denies pain, LS with exp wheezes in bilat upper lobes, dim in bilat bases, requiring 2L NC, trace bilat LE edema noted, anticipating discharge to rehab today, will continue to monitor
[2020-08-26 11:35] VITALS: BP 149/77; PULSE 82; RESP 30; TEMP 36.9; O2SAT 92
[2020-08-26 13:06] VITALS: BP 149/77; PULSE 82; O2SAT 92
--- NOTE | 2020-08-26 13:49 | P.DS_ITS ---
DS: Providers Provider Date of Service: 08/26/20 Date of admission: 08/20/20 15:59 Primary care physician: Manny Meadows MD Consults: 08/20/20 17:33 Consult to Infectious Diseases Routine Consulting Provider: Marisa Beebe Reason for consultation: covid Has provider been notified: No DS: Diagnosis Discharge Diagnosis (1) Acute respiratory failure due to COVID-19: Status: Acute (2) Pulmonary embolism: Status: Acute (3) DVT (deep venous thrombosis): Status: Acute DS: Medications Discharge Medications Home Medications: Home Medications Medication Instructions Recorded Confirmed albuterol sulfate 2.5 mg INHALATION Q4H PRN 08/20/20 08/20/20 azithromycin 250 mg PO MOWEFR@0900 08/20/20 08/20/20 beclomethasone dipropionate [Qvar 1 puff PO BID 08/20/20 08/24/20 RediHaler] doxycycline hyclate 100 mg PO BID 08/20/20 08/20/20 fluticasone propion-salmeterol 1 puff PO BID 08/20/20 08/20/20 [Wixela Inhub] furosemide 20 - 40 mg PO DAILY PRN 08/20/20 08/20/20 levothyroxine 88 mcg PO DAILY 08/20/20 08/20/20 montelukast 10 mg PO BEDTIME 08/20/20 08/20/20 prednisone See Taper PO DAILY 08/20/20 08/20/20 simvastatin 20 mg PO BEDTIME 08/20/20 08/20/20 theophylline 300 mg PO DAILY 08/20/20 08/20/20 tiotropium bromide [Spiriva 2 puff INHALATION DAILY 08/20/20 08/20/20 Respimat] DS: Summary Hospital Course Hospital Course: HPI 80 year old female who presents to the ED with shortness of breath. She has had a dry cough for the past 1 week and has been generally feeling ?lousy.? She was diagnosed with coronavirus on Monday. She lives with her daughter and recently her son-in-law tested positive for COVID19. She and the remainder of her family all tested positive as well. Today her oxygen saturation at home was low and she was reportedly short of breath she was brought to the hospital for evaluation. She was noted to have fever of 100.5, she was tachycardic and tachypneic on arrival. Her oxygen saturation was in the 80s by EMS. CTA showed multifocal airspace and ground-glass opacities diffusely throughout bilateral lungs as well as small pulmonary embolus in the right middle lobe pulmonary artery and right lower extremity DVT. Her CRP was elevated at 27.61. She was given a dose of IV dexamethasone and started on heparin drip and the decision was made to admit her for further management. Hospital course 80-year-old female admitted with acute hypoxic respiratory failure secondary to COVID pneumonia and pulmonary embolism and right lower extremity DVT for acute hypoxic respiratory failure secondary to COVID pneumonia patient was placed on oxygen supplementation, IV dexamethasone and supportive management, id was consulted patient received remdesivir, patient's symptoms improved, shortness of breath was improving, patient was weaned down to 2 L of oxygen and switched to p.o. dexamethasone on discharge to complete total 10 days for pulmonary embolism and lower extremity DVT patient initially was started on heparin drip and later transitioned to p.o. Eliquis, patient was discharged with 10 mg of Eliquis p.o. b.i.d. for 3 more days and then transition to 5 mg b.i.d. for 6 months patient was evaluated by Physical therapy recommended short-term rehab, patient was stable discharged to short-term rehab Time Spent with Patient Time attestation: Total time spent providing and/or coordinating discharge services: Discharge coordination time: Greater than 30 minutes Physical Exam Vital Signs: Vital Signs: Last Vital Signs Temp 98.4 F 08/26/20 11:35 Pulse 82 08/26/20 13:06 Resp 30 H 08/26/20 11:35 BP 149/77 H 08/26/20 13:06 Pulse Ox 92 08/26/20 13:06 Body Mass Index 25.0 Discharge Plan Discharge Anticipated Discharge Date/Time: 08/26/20 11:20 Patient Disposition: [facility] Referrals: [facility] [Outside] Manny Meadows MD [Primary Care Provider] - Discharge Medications: New Eliquis 5 mg Tablet 10 mg PO BID Qty: 60 RF: 0 dexamethasone 6 mg tablet 6 mg PO DAILY Qty: 4 RF: 0 Continued prednisone 10 mg tablet See Taper tab PO DAILY RF: 0 albuterol sulfate 2.5 mg /3 mL (0.083 %) solution for nebulization 2.5 mg inhalation Q4H PRN (Reason: wheezing) RF: 0 azithromycin 250 mg tablet 250 mg PO MOWEFR@0900 RF: 0 theophylline 300 mg tablet extended release 12 hr 300 mg PO DAILY RF: 0 levothyroxine 88 mcg tablet 88 mcg PO DAILY RF: 0 simvastatin 20 mg tablet 20 mg PO BEDTIME RF: 0 fluticasone propion-salmeterol [Wixela Inhub] 500-50 mcg/dose blister with device 1 puff PO BID RF: 0 montelukast 10 mg tablet 10 mg PO BEDTIME RF: 0 furosemide 20 mg tablet 20 - 40 mg PO DAILY PRN (Reason: Edema) RF: 0 Spiriva Respimat 2.5 mcg/actuation mist 2 puff inhalation DAILY RF: 0 Qvar RediHaler 80 mcg/actuation HFA aerosol breath activated 1 puff PO BID RF: 0 Discontinued doxycycline hyclate 100 mg tablet 100 mg PO BID RF: 0 Discharge Orders: Discharge Order (Routine); Ordered 08/26/20 Ordered By: Ridge Griffin Activity on Discharge: As tolerated Stand Alone Forms: Patient Portal Discharge page Care Plan Goals: treat covid Health Concerns: covid pneumonia Plan of Treatment: see above
--- NOTE | 2020-08-26 15:40 | MHC.CM.PN ---
Patient will be discharging today to [facility] at 6pm via BLS transport. Nurse, patient and dtr Neelima are aware.
[2020-08-26 15:42] VITALS: BP 127/69; PULSE 90; RESP 18; TEMP 36.3; O2SAT 93
== END 2020-08-26 18:00 | disposition skilled nursing facility (03) | DRG 871 ==
LOC: HO.ED 16:12 → HO.EDOVER 16:18 → HO.IMC 18:00
PROVIDERS: Internal Medicine; Physician Assistant; Physician Assistant Medical; Admitting Provider Hospitalist; Emergency Provider Emergency Medicine; PCP Internal Medicine; Visit Provider Internal Medicine
DX: A41.89 Other specified sepsis (principal); U07.1 COVID-19; J12.82 Pneumonia due to coronavirus disease 2019; J96.01 Acute respiratory failure with hypoxia; I26.93 Single subsegmental thrombotic pulmonary embolism without acute cor pulmonale; I82.411 Acute embolism and thrombosis of right femoral vein; E87.6 Hypokalemia; E83.42 Hypomagnesemia; E78.5 Hyperlipidemia, unspecified; J45.909 Unspecified asthma, uncomplicated; I25.10 Atherosclerotic heart disease of native coronary artery without angina pectoris; E03.9 Hypothyroidism, unspecified; Z95.1 Presence of aortocoronary bypass graft; Z85.3 Personal history of malignant neoplasm of breast; Z79.01 Long term (current) use of anticoagulants; Z79.52 Long term (current) use of systemic steroids; Z79.890 Hormone replacement therapy; Z79.899 Other long term (current) drug therapy
CPT/HCPCS: 36415; 71045; 71275; 80048; 80076; 81001; 82803; 83605; 83735; 83880; 84145; 84484; 85025; 85379; 85610; 85730; 86140; 87040; 87635; 93005; 93970; 94640; 94644; 94664; 97110; 97162; 99284; J1100; J2543; J3475; J3490; Q9967

== ENCOUNTER 2020-08-27 06:59 | Outpatient (REF) | payer MEDICARE, SELFPAY ==
[2020-08-27 07:39] LABS: MANUAL DIFF FLAG NO
[2020-08-27 07:46] LABS: Basophils Percent Auto 0.2 % (0-2); Hematocrit 40.4 % (37-47); Hemoglobin 12.2 g/dl (12.0-16.0); Imm Gran Abs Auto 0.73 X10*3/uL (0.00-0.03); Imm Gran Pct Auto 3.5 % (0.0-0.4); Lymphocytes Absolute Auto 1.3 X10*3/uL (1.2-4.9); Lymphocytes Percent Auto 6.4 % (20-40); Mean Corpuscular HGB Conc 30.2 g/dl (31.0-35.0); Mean Corpuscular Hemoglobin 24.3 pg (27.0-33.0); Mean Corpuscular Volume 80.3 fL (80-98); Mean Platelet Volume 9.4 fL (9.4-12.3); Monocytes Absolute Auto 1.4 X10*3/uL (0.1-1.2); Monocytes Percent Auto 6.7 % (2-11); NRBC Pct Auto 0.1 /100WBC (0.0-0.2); Neutrophils Absolute Auto 17.4 X10*3/uL (2.0-8.3); Neutrophils Percent Auto 83.2 % (45-73); Platelet Count 503 X10*3/uL (160-400); Red Blood Count 5.03 X10*6/uL (4.20-5.50); Red Cell Distribution Width 17.1 % (11.0-16.0); White Blood Count 20.9 X10*3/uL (4.8-10.8)
[2020-08-27 08:11] LABS: Alanine Aminotransferase 13 U/L (0-31); Albumin Level 2.8 g/dL (3.5-5.0); Alkaline Phosphatase 121 U/L (39-117); Anion Gap 14 (12-20); Aspartate Amino Transferase 10 U/L (5-31); Bilirubin Total 0.7 mg/dL (0.0-1.0); Blood Urea Nitrogen 20 mg/dL (9-16); Calcium 8.1 mg/dL (8.4-10.2); Carbon Dioxide 27 mmol/L (22-29); Chloride 104 mmol/L (96-108); Estimated Glomerular Filt Rate > 60; Glucose Random 164 mg/dL (60-115); Potassium 5.1 mmol/L (3.3-5.1); Sodium 140 mmol/L (135-145); Total Protein 5.3 g/dL (6.5-8.0)
== END 2020-08-27 07:00 | disposition home or self-care (01) ==
LOC: HO.MMNH1L 06:59
PROVIDERS: Visit Provider Family Medicine
DX: J18.9 Pneumonia, unspecified organism (principal); Z20.822 Contact with and (suspected) exposure to COVID-19
CPT/HCPCS: 36415; 80053; 85025

== ENCOUNTER 2020-08-31 00:27 | Outpatient (REF) | payer MEDICARE, SELFPAY ==
[2020-08-31 07:47] LABS: Hematocrit 34.6 % (37-47); Hemoglobin 10.9 g/dl (12.0-16.0); Mean Corpuscular HGB Conc 31.5 g/dl (31.0-35.0); Mean Corpuscular Hemoglobin 24.9 pg (27.0-33.0); Mean Platelet Volume 9.5 fL (9.4-12.3); Platelet Count 617 X10*3/uL (160-400); Red Blood Count 4.38 X10*6/uL (4.20-5.50); Red Cell Distribution Width 16.7 % (11.0-16.0); White Blood Count 21.7 X10*3/uL (4.8-10.8)
[2020-08-31 08:14] LABS: Anion Gap 16 (12-20); Blood Urea Nitrogen 23 mg/dL (9-16); Calcium 8.2 mg/dL (8.4-10.2); Carbon Dioxide 24 mmol/L (22-29); Chloride 98 mmol/L (96-108); Estimated Glomerular Filt Rate > 60; Glucose Random 308 mg/dL (60-115); Sodium 133 mmol/L (135-145)
== END 2020-08-31 00:28 | disposition home or self-care (01) ==
LOC: HO.MMNH1L 00:27
PROVIDERS: Visit Provider Family Medicine
DX: U07.1 COVID-19 (principal); J18.9 Pneumonia, unspecified organism
CPT/HCPCS: 36415; 80048; 85027

== ENCOUNTER 2020-09-05 07:29 | Emergency (ER) | payer MEDICARE, SELFPAY ==
--- NOTE | 2020-09-05 07:57 | PC.NURSE ---
@[id number] DR MANSFIELD REQUEST CALL OUT TO DAUGHTER JIMBO @ [phone] MANSFIELD TAKES OVER CALL RIGHT AWAY
--- NOTE | 2020-09-05 08:04 | ED.CPR ---
HPI - CPR General Chief Complaint: Cardiac Arrest/CPR Stated Complaint: FOUND UNRESPONSIVE W/LOW O2SAT IN THE 50'S @ [facility] Time Seen by Provider: 09/05/20 08:02 Source: EMS Mode of arrival: EMS Limitations: other History of Present Illness HPI narrative: Patient is coming from [facility] by EMS. Earlier this morning, patient was found unresponsive in her bed, with oxygen saturation in the low 50s. Patient was last seen at baseline yesterday before midnight. Patient is recovering from COVID-19. Patient had very faint pulses, heart rate in the low 30s. Patient arrived being bagged. Patient still unresponsive, pupils are reactive. There is no MOLDs form available for the patient. Patient was given atropine for bradycardia and intubated on arrival. Patient was put on the monitor, it seems that the patient had STEMI pattern, which occurred likely secondary to prolonged hypoxia. Within couple of minutes, patient went into PEA, CPR was started. Then patient went into ventricular fibrillation, patient was shocked once and CPR reassumesd. I spoke to the patient's daughter over the phone, I discussed the current situation of her mother. The patient's daughter stated that yesterday the patient was on 3 L of oxygen, today patient was found on room air. I discussed with the patient's daughter that at this time, unfortunately continuing resuscitation is futile. The patient's daughter agreed to stop all resuscitation efforts. Of note, patient was discharged from [facility] on August 26, patient was diagnosed with multiple pulmonary embolisms and COVID-19 MD complaint: found unresponsive Related Data Home Medications Medication Instructions Recorded Confirmed Qvar RediHaler 1 puff PO BID 08/20/20 08/24/20 Spiriva Respimat 2 puff INHALATION DAILY 08/20/20 08/20/20 albuterol sulfate 2.5 mg INHALATION Q4H PRN 08/20/20 08/20/20 azithromycin 250 mg PO MOWEFR@0900 08/20/20 08/20/20 fluticasone propion-salmeterol 1 puff PO BID 08/20/20 08/20/20 [Wixela Inhub] furosemide 20 - 40 mg PO DAILY PRN 08/20/20 08/20/20 levothyroxine 88 mcg PO DAILY 08/20/20 08/20/20 montelukast 10 mg PO BEDTIME 08/20/20 08/20/20 prednisone See Taper PO DAILY 08/20/20 08/20/20 simvastatin 20 mg PO BEDTIME 08/20/20 08/20/20 theophylline 300 mg PO DAILY 08/20/20 08/20/20 Previous Rx's Medication Instructions Recorded apixaban [Eliquis] 10 mg PO BID #60 tab 08/26/20 dexamethasone 6 mg PO DAILY #4 tab 08/26/20 Allergies Allergy/AdvReac Type Severity Reaction Status Date / Time levofloxacin [From Levaquin] Allergy Unknown Unknown Verified 08/20/20 13:00 Review of Systems Review of Systems: Yes Unobtainable due to mental condition [facility] Past Medical History Medical History Asthma CAD (coronary artery disease) History of breast cancer History of chemotherapy HLD (hyperlipidemia) Hypothyroid Surgical History S/P triple vessel bypass Family History Family History Other No cardiac disease Social History Social History Household Members: Family Housing: House Alcohol intake: never Smoking Status: Never smoker Advance Directives: No Advance Directives Information Provided: No service: No Current occupational status: retired Physical Exam Vital Signs: Appearance: Unresponsive Eyes: Pupils equal, dilated at 5 mm, nonresponsive to light ENT: Pharynx normal. Neck: Normal inspection. Neck supple. No lymph nodes noted. No crepitus CVS: Very faint pulses, in the low 30s Respiratory: Patient being manually ventilated, now intubated Abdomen: Soft Skin: Skin warm and dry. Cyanosis in distal extremities , hands and feet cool to touch Extremities: +4 pitting edema Neuro: Pupils unresponsive to light, patient unresponsive Course Course Course Narrative: As mentioned above, I discussed with the daughter the current situation, it was decided to stop resuscitation efforts. Time of called at 07:52. Patient's daughter is on the way Cause of likely secondary due to COVID-19 leading to hypoxia, cardiac arrhythmia, possibly PR, cardiac arrest Procedures Intubation Time out performed: No sedative: Etomidate Mg Given: 20 paralytic: Rocuronium Mg Given: 80 Laryngoscope: other (GlideScope) ET Tube Size: 7.5 ET Tube Uncuffed: Yes Tube Secured Depth (cm): 23 Tube Secured Location: lips Tube Placement Confirmation: visualized tube passing through cords, equal breath sounds bilaterally, no breath sounds over epigastrium and confirmation by capnometry Patient Tolerated Procedure: no complications Intubation Complications: none Discharge Plan Discharge Clinical Impression: Cardiac arrest Patient Disposition: Discharge Date/Time: 09/05/20 09:49 Date/Time: 09/05/20 07:52
--- NOTE | 2020-09-05 08:29 | PC.NURSE ---
spoke with organ bank @[id number], due to covid no further screening for donation was needed.
--- NOTE | 2020-09-05 08:53 | PC.NURSE ---
@[id number] FAMILY ASKS FOR THE NEXT STEP I GAVE THEM A CARD WITH THE SWITCHBOARD PHONE NUMBER WRITTEN ON IT FOR THEM TO CALL THEM WITH THE HOME NAME AND LOCATION THEY WEREN'T SURE WHICH CITY/TOWN IT WAS IN.
--- NOTE | 2020-09-05 09:51 | PC.NURSE ---
0948 TO GABI @ THIS TIME AND WORKSHEET TO SWITCHBOARD @ SAME TIME WITH PCT'S
[2020-09-05 10:27] LABS: Glucose, Whole Blood 416 mg/dL (60-115)
== END 2020-09-05 09:49 | disposition expired ==
PROVIDERS: Emergency Provider Emergency Medicine; PCP Internal Medicine
DX: I46.9 Cardiac arrest, cause unspecified (principal); R60.0 Localized edema
CPT/HCPCS: 31500; 82947; 99281; J0171; J0461